=== PATIENT | male | born 1945 | race Caucasian/White ===

== ENCOUNTER 2017-04-12 09:24 | Emergency (ER) | payer MEDICARE ==
[~2017-04-12] VITALS: Ht 180.3 cm; Wt 75.0 kg
[2017-04-12 09:26] VITALS: BP 148/79; PULSE 84; RESP 16; TEMP 97.6; O2SAT 100
--- NOTE | 2017-04-12 10:17 | PD ---
HPI Chief Complaint: Musculoskeletal Complaint Time Seen by Provider: 09:43 Travel History International Travel<30 days: No Contact w/Intl Traveler<30days: No Traveled to known affect area: No History of Present Illness HPI 71-year-old male with 5 day history of left lower back pain with radicular pain into the left leg. Patient states it started after working in his garden. It has gotten progressively worse over the past couple of days. Patient denies numbness, tingling, or weakness other than secondary to discomfort. Patient has no other significant complaint. Patient denies bowel or bladder changes. He has no fever, chills, or other symptoms. Pain is 8 out of 10 he has no known drug allergies. PFSH Past Medical History Hx Anticoagulant Therapy: No Cardiovascular Problems: No Chemotherapy: No Cerebrovascular Accident: No Diabetes: No Respiratory: No Social History Alcohol Use: No Tobacco Use: No Substance Use: No Allergies-Medications (Allergen,Severity, Reaction): Coded Allergies: No Known Allergies (Verified Allergy, Unknown, 04/12/17) Review of Systems General / Constitutional: No: Fever Eyes: No: Visual changes HENT: No: Headaches Cardiovascular: No: Chest Pain or Discomfort Respiratory: No: Shortness of Breath Gastrointestinal: No: Abdominal Pain Genitourinary: No: Dysuria Musculoskeletal: Positive: Myalgias, Arthralgias, Limited ROM, Pain Skin: No Rash Neurologic: No: Weakness Psychiatric: No: Depression Endocrine: No: Polydipsia Hematologic/Lymphatic: No: Easy Bruising Physical Exam Narrative GENERAL: Patient appears in mild to moderate distress. SKIN: Warm and dry. Normal color. Normal turgor. No rash. HEAD: Atraumatic. Normocephalic. EYES: Pupils equal and round. No scleral icterus. No injection or drainage. ENT: No nasal bleeding or discharge. Mucous membranes pink and moist. Pharynx is clear. Airways patent. NECK: Trachea midline. Supple and nontender. CARDIOVASCULAR: Regular rate and rhythm. RESPIRATORY: No accessory muscle use. Clear to auscultation. Breath sounds equal bilaterally. MUSCULOSKELETAL: Extremities without clubbing, cyanosis, or edema. No obvious deformities. Patient is able to stand on the left foot with discomfort, he is able to dorsiflex and plantar flex without weakness he has mild straight leg raise pain on the left at 45 NEUROLOGICAL: Awake and alert. No obvious cranial nerve deficits. Motor grossly within normal limits. Five out of 5 muscle strength in the arms and legs. Normal speech. PSYCHIATRIC: Appropriate mood and affect; insight and judgment normal. Data Data Last Documented VS Vital Signs Date Time Temp Pulse Resp B/P (MAP) Pulse Ox O2 Delivery O2 Flow Rate FiO2 04/12/17 09:26 97.6 84 16 148/79 (102) 100 MDM Medical Decision Making Medical Screen Exam Complete: Yes Emergency Medical Condition: Yes Differential Diagnosis Low back pain. Sciatica. Spinal stenosis Narrative Course Discussed that I feel radiographic imaging is not warranted based on my history and physical at this time. Patient will be treated with prednisone 20 mg twice daily 7 days. Patient also given Flexeril 10 mg up to 3 times daily as needed muscle spasm #15 Patient is given tramadol 50 mg 1 every 6 hours as needed pain #20 Heat and ice and stretching and exercises as discussed. Patient to follow-up with chiropractor and/or orthopedic surgeon as needed. Diagnosis Primary Impression: Lumbago with sciatica, left side Qualified Codes: M54.42 - Lumbago with sciatica, left side Patient Instructions: Acute Low Back Pain (ED), General Instructions, Lower Back Exercises (ED), Lumbar Radiculopathy (ED) Additional Instructions: Discussed that I feel radiographic imaging is not warranted based on my history and physical at this time. Patient will be treated with prednisone 20 mg twice daily 7 days. Patient also given Flexeril 10 mg up to 3 times daily as needed muscle spasm #15 Patient is given tramadol 50 mg 1 every 6 hours as needed pain #20 Heat and ice and stretching and exercises as discussed. Patient to follow-up with chiropractor and/or orthopedic surgeon as needed. Med/Other Pt SpecificInfo: Prescription(s) given Disposition: 01 DISCHARGE HOME Condition: Stable Selvin Atkinson Apr 12, 2017 10:17
[2017-04-12] MEDS ORDERED: TRAM50TA PO (10:19)
[2017-04-12] MEDS ORDERED: CYCL10TA PO (10:19)
[2017-04-12] MEDS ORDERED: PRED20 PO (10:19)
== END 2017-04-12 10:31 | disposition home or self-care (01) ==
LOC: NEPK 09:24
DX: M54.42 Lumbago with sciatica, left side (principal)
CPT/HCPCS: 99283

== ENCOUNTER 2018-02-26 10:53 | Inpatient (IN) ==
[2018-02-26] MEDS ORDERED: Sod Chloride 0.9% Inj 1,000 ML IV.SIG ONE (11:24)
[2018-02-26 11:41] LABS: Baso # (Auto) 0.1 th/mm3 (0.0-0.2); Baso % (Auto) 0.6 % (0.0-2.0); Eos # (Auto) 0.3 th/mm3 (0.0-0.4); Eos % (Auto) 2.7 % (0.0-4.0); Hematocrit 38.2 % (39.0-51.0); Hemoglobin 13.5 gm/dL (13.0-17.0); Lymph # (Auto) 1.3 th/mm3 (1.0-4.8); Lymph % (Auto) 13.3 % (9.0-44.0); Mean Corpuscular HGB Conc 35.3 % (32.0-36.0); Mean Corpuscular Hemoglobin 35.8 pg (27.0-34.0); Mean Corpuscular Volume 101.4 fL (80.0-100.0); Mean Platelet Volume 9.4 fL (7.0-11.0); Mono # (Auto) 2.1 th/mm3 (0.0-0.9); Mono % (Auto) 22.1 % (0.0-8.0); Neut # (Auto) 5.8 th/mm3 (1.8-7.7); Neut % (Auto) 61.3 % (16.0-70.0); Platelet Count 146 th/mm3 (150-450); Red Blood Count 3.77 mil/mm3 (4.50-5.90); Red Cell Distribution Width 15.5 % (11.6-17.2); White Blood Count 9.5 th/mm3 (4.0-11.0)
[2018-02-26 11:57] LABS: Alanine Aminotransferase 20 U/L (12-78); Albumin 2.1 g/dL (3.4-5.0); Anion Gap 5 meq/L (5-15); Aspartate Aminotransferase 28 U/L (15-37); Blood Urea Nitrogen 17 mg/dL (7-18); Calcium 7.8 mg/dL (8.5-10.1); Carbon Dioxide 28.4 meq/L (21.0-32.0); Chloride 102 meq/L (98-107); Glomerular Filtration Rate 79 mL/min (>89); Glucose,Random 81 mg/dL (74-106); Magnesium 2.3 mg/dL (1.5-2.5); Sodium 135 meq/L (136-145)
[2018-02-26 12:01] LABS: Alkaline Phosphatase 78 U/L (45-117); Total Protein 6.5 g/dL (6.4-8.2); Troponin I 0.03 ng/mL (0.02-0.05)
--- NOTE | 2018-02-26 12:07 | XR ---
EXAM DATE: 02/26/2018 11:39 AM EST AGE/SEX: 72 years / Male INDICATIONS: Shortness of breath and generalized weakness. CLINICAL DATA: This is the patient's sequela encounter. Patient reports that signs and symptoms have been present for 1 week and indicates a pain score of 0/10. MEDICAL/SURGICAL HISTORY: Cirrhosis. . Paracentesis. COMPARISON: [facility] [place], CHEST 1V SINGLE AP, 02/18/2018. . FINDINGS: A single AP view of the chest demonstrates the lungs to be symmetrically aerated without evidence of mass, infiltrate or effusion. The cardiomediastinal contours are unremarkable. Osseous structures a re intact. CONCLUSION: Negative for acute process Electronically signed by: Eliu Garcia MD Board Certified Radiologist 02/26/2018 12:06 PM EST
--- NOTE | 2018-02-26 12:07 | CT ---
EXAM DATE: 02/26/2018 11:47 AM EST AGE/SEX: 72 years / Male INDICATIONS: Altered mental status and weakness. CLINICAL DATA: This is the patient's initial encounter. Patient reports that signs and symptoms have been present for 2 days and indicates a pain score of 0/10. MEDICAL/SURGICAL HISTORY: Cirrhosis. Congestive heart failure. Hypertension. Hep c. None. RADIATION DOSE: 36.12 CTDI (mGy) COMPARISON: No prior exams available for comparison. TECHNIQUE: CT of the head without contrast. Using automated exposure control and adjustment of the mA and/or kV according to patient size, radiation dose was kept as low as reasonably achievable to ob tain optimal diagnostic quality images. DICOM format image data is available electronically for revi ew and comparison. FINDINGS: Cerebrum: Mild diffuse cerebral atrophy. The ventricles are normal for degree of atrophy. No evidenc e of midline shift, mass lesion, hemorrhage or acute infarction. No extraaxial fluid collections are seen. Posterior Fossa: The cerebellum and brainstem are intact. The 4th ventricle is midline. The cerebe llopontine angle is unremarkable. Extracranial: The visualized portion of the orbits is intact. Skull: The calvaria is intact. No evidence of skull fracture. CONCLUSION: 1. Senescent changes without acute intracranial abnormality. . Electronically signed by: Venancio Vera MD Board Certified Radiologist 02/26/2018 12:05 PM EST
[2018-02-26 13:18] LABS: Amphetamine Screen,Urine Neg (Neg); Barbiturate Screen,Urine Neg (Neg); Cannabinoid Screen,Urine Neg (Neg); Cocaine Screen,Urine Neg (Neg)
[2018-02-26 13:19] LABS: Bilirubin,Urine Negative (Negative); Calcium Oxalate Crystals,Urine Rare /hpf; Clarity,Urine Hazy (Clear); Color,Urine Amber (Yellw/Straw); Glucose,Urine (UA) Negative (Negative); Hyaline Casts,Urine 4 /lpf (0-3); Leukocyte Esterase,Urine Negative (Negative); Mucus,Urine Few /lpf (Occasional); Nitrite,Urine Negative (Negative); Opiate Screen,Urine Neg (Neg); Specific Gravity,Urine 1.015 (1.002-1.035); Squamous Epithelial Cell,Urine <1 /hpf (0-5)
--- NOTE | 2018-02-26 13:45 | ED ---
HPI General Chief Complaint: Altered Mental Status Stated Complaint: Medical Time Seen by Provider: 02/26/18 11:06 Source: patient and family Mode of arrival: wheelchair Limitations: altered mental status History of Present Illness HPI narrative: 72-year-old male with PMH of hepatitis C, cirrhosis of the liver , esophageal varices, ascites presents to the ED for evaluation of 4-day history of weakness and intermittent confusion. The patient's is at bedside and helps to provide the history. She states that patient was recently discharged from the hospital. She states on the first day he was more himself but since then he has "been in bed." She states that he has had intermittent episodes of confusion and anxiety. She states that he has had an episode of urinary incontinence. She states that the patient has not had any fevers. She states that he has had a "okay" appetite. She states that he has not been complaining of anything but has not resumed his normal ADLs. The patient is alert and oriented x3. He follows commands. He denies chest pain, shortness of breath, nausea, vomiting. He states that "It is too hard to talk." Related Data Previous Rx's Medication Instructions Recorded furosemide 40 mg PO BID@0900,1800 #60 tab 02/23/18 nadolol 20 mg PO DAILY 30 Days #30 tab 02/23/18 spironolactone 100 mg PO BID@0900,1800 #60 tab 02/23/18 Allergies Allergy/AdvReac Type Severity Reaction Status Date / Time No Known Allergies Allergy Verified 02/26/18 11:01 Review of Systems ROS: all other systems reviewed are negative [facility] Medical History Medical History Advanced hepatic cirrhosis (Acute) CHF (congestive heart failure) (Acute) HTN (hypertension) (Acute) Social History Social History Substance History: Past History Second Hand Smoke Exposure: No Smoking Status: Never smoker Tobacco Type: Cigarettes How Often Do You Have a Drink Containing Alcohol: Never Recent Travel in [facility] within the Last 8 Weeks: No Recent Out of Country Travel within the Last 8 Weeks: No Substance Abuse Detail Alcohol: Substance Use Status: Sustained Remission Immunization History Tetanus Immunization: Unsure Exam Narrative Exam Narrative: GENERAL: Thin, chronically ill-appearing white male in no acute distress. SKIN: Focused skin assessment warm/dry. Mildly jaundiced. HEAD: Atraumatic. Normocephalic. EYES: Pupils equal and round. No scleral icterus. No injection or drainage. ENT: No nasal bleeding or discharge. Mucous membranes pink and moist. NECK: Trachea midline. No JVD. CARDIOVASCULAR: Regular rate and rhythm. No murmur appreciated. RESPIRATORY: No accessory muscle use. Clear to auscultation. Breath sounds equal bilaterally. GASTROINTESTINAL: Abdomen soft, non-tender, mildly distended. Positive fluid wave. Hepatic and splenic margins not palpable. MUSCULOSKELETAL: No obvious deformities. No clubbing. No cyanosis. No edema. NEUROLOGICAL: Awake and alert. No obvious cranial nerve deficits. Motor grossly within normal limits. Normal speech. PSYCHIATRIC: Appropriate mood and affect; insight and judgment normal. Course Initial Documented Vital Signs Temperature 97.5 F L 02/26/18 10:59 Pulse Rate 69 02/26/18 10:59 Respiratory Rate 16 02/26/18 10:59 Blood Pressure 120/66 02/26/18 10:59 Pulse Oximetry 100 02/26/18 10:59 Last Documented Vital Signs Temperature 97.5 F L 02/26/18 10:59 Pulse Rate 62 02/26/18 11:10 Respiratory Rate 18 02/26/18 11:10 Blood Pressure 127/63 02/26/18 11:10 Pulse Oximetry 100 02/26/18 11:10 Medical Decision Making [facility] Narrative Medical decision making narrative: 72-year-old male with PMH of hepatitis C, cirrhosis, hypertension, ascites presents the ED for evaluation of weakness and intermittent confusion. Patient states that he is too weak to talk. at bedside provides the history. Patient is afebrile on presentation. Physical exam reveals a chronically ill-appearing white male in no acute distress. No focal neuro deficits. Abdomen with moderate ascites and fluid wave. Skin is mildly jaundiced appearing. Patient was administered 1 L normal saline. I reviewed the patient's record. He was just discharged a few days ago. EKG without acute findings. Troponin negative x1. Lab work with no leukocytosis or anemia. CMP with elevated bilirubin of 2.5, worsened from last visit and AST of 28, ALT 20. UA: No culture indicated. CT brain with mild diffuse atrophy. CXR negative for acute process per radiology read. Ammonia trending downward at 44. Given the patient's weakness and intermittent confusion plan to admit for observation. Likely needs PT evaluation as well. Patient's family is agreeable to this plan I spoke with Dr. Molina who agrees to accept him to the medicine service. Please see medicine notes for disposition. Medical Screen Exam Complete: Yes Emergency Medical Condition: Yes Differential Diagnosis Differential Diagnosis: UTI versus pneumonia versus liver failure versus other Lab Data Result diagrams: 02/26/18 11:30 02/26/18 11:30 Lab Results 02/26/18 02/26/18 02/26/18 Range/Units 11:30 11:30 11:30 WBC 9.5 (4.0-11.0) th/mm3 RBC 3.77 L (4.50-5.90) mil/mm3 Hgb 13.5 (13.0-17.0) gm/dL Hct 38.2 L (39.0-51.0) % MCV 101.4 H (80.0-100.0) fL MCH 35.8 H (27.0-34.0) pg MCHC 35.3 (32.0-36.0) % RDW 15.5 (11.6-17.2) % Plt Count 146 L D (150-450) th/mm3 MPV 9.4 (7.0-11.0) fL Neut % (Auto) 61.3 (16.0-70.0) % Lymph % (Auto) 13.3 (9.0-44.0) % Johnson % (Auto) 22.1 H (0.0-8.0) % Eos % (Auto) 2.7 (0.0-4.0) % Baso % (Auto) 0.6 (0.0-2.0) % Neut # (Auto) 5.8 (1.8-7.7) th/mm3 Lymph # (Auto) 1.3 (1.0-4.8) th/mm3 Johnson # (Auto) 2.1 H (0.0-0.9) th/mm3 Eos # (Auto) 0.3 (0.0-0.4) th/mm3 Baso # (Auto) 0.1 (0.0-0.2) th/mm3 WBC Differential . Differential Comment Auto diff final Sodium 135 L (136-145) meq/L Potassium 4.0 (3.5-5.1) meq/L Chloride 102 (98-107) meq/L Carbon Dioxide 28.4 (21.0-32.0) meq/L Anion Gap 5 (5-15) meq/L BUN 17 (7-18) mg/dL Creatinine 0.94 (0.60-1.30) mg/dL Estimated GFR 79 L (>89) mL/min Random Glucose 81 (74-106) mg/dL Lactic Acid 1.7 (0.4-2.0) mmol/L Calcium 7.8 L (8.5-10.1) mg/dL Magnesium 2.3 (1.5-2.5) mg/dL Total Bilirubin 2.5 H (0.2-1.0) mg/dL AST 28 (15-37) U/L ALT 20 (12-78) U/L Alkaline Phosphatase 78 (45-117) U/L Ammonia (11-32) mcmol/L Troponin I 0.03 (0.02-0.05) ng/mL Total Protein 6.5 D (6.4-8.2) g/dL Albumin 2.1 L (3.4-5.0) g/dL Urine Color (Yellw/Straw) Urine Clarity (Clear) Urine pH (5.0-8.5) Ur Specific Galt (1.002-1.035) Urine Protein (Neg-Trace) mg/dL Urine Glucose (UA) (Negative) mg/dL Urine Ketones (Negative) mg/dL Urine Occult Blood (Negative) Urine Nitrate (Negative) Urine Bilirubin (Negative) Urine Urobilinogen (Less than 2) mg/dL Ur Leukocyte Esterase (Negative) Urine RBC (0-3) /hpf Urine WBC (0-5) /hpf Ur Squamous Epith Cells (0-5) /hpf Calcium Oxalate Crystal (None) /hpf Hyaline Casts (0-3) /lpf Urine Mucus (Occasional) /lpf Micro UA Comment Ur Microscopic Review Urine Culture Comments Urine Opiates Screen (Neg) Ur Barbiturates Screen (Neg) Ur Amphetamines Screen (Neg) U Benzodiazepines Scrn (Neg) Urine Cocaine Screen (Neg) U Cannabinoids Screen (Neg) Serum Alcohol Less than 3 (0-5) mg/dL 02/26/18 02/26/18 02/26/18 Range/Units 11:30 12:53 12:53 WBC (4.0-11.0) th/mm3 RBC (4.50-5.90) mil/mm3 Hgb (13.0-17.0) gm/dL Hct (39.0-51.0) % MCV (80.0-100.0) fL MCH (27.0-34.0) pg MCHC (32.0-36.0) % RDW (11.6-17.2) % Plt Count (150-450) th/mm3 MPV (7.0-11.0) fL Neut % (Auto) (16.0-70.0) % Lymph % (Auto) (9.0-44.0) % Johnson % (Auto) (0.0-8.0) % Eos % (Auto) (0.0-4.0) % Baso % (Auto) (0.0-2.0) % Neut # (Auto) (1.8-7.7) th/mm3 Lymph # (Auto) (1.0-4.8) th/mm3 Johnson # (Auto) (0.0-0.9) th/mm3 Eos # (Auto) (0.0-0.4) th/mm3 Baso # (Auto) (0.0-0.2) th/mm3 WBC Differential Differential Comment Sodium (136-145) meq/L Potassium (3.5-5.1) meq/L Chloride (98-107) meq/L Carbon Dioxide (21.0-32.0) meq/L Anion Gap (5-15) meq/L BUN (7-18) mg/dL Creatinine (0.60-1.30) mg/dL Estimated GFR (>89) mL/min Random Glucose (74-106) mg/dL Lactic Acid (0.4-2.0) mmol/L Calcium (8.5-10.1) mg/dL Magnesium (1.5-2.5) mg/dL Total Bilirubin (0.2-1.0) mg/dL AST (15-37) U/L ALT (12-78) U/L Alkaline Phosphatase (45-117) U/L Ammonia 44 H (11-32) mcmol/L Troponin I (0.02-0.05) ng/mL Total Protein (6.4-8.2) g/dL Albumin (3.4-5.0) g/dL Urine Color Consuelo (Yellw/Straw) Urine Clarity Hazy H (Clear) Urine pH 6.0 (5.0-8.5) Ur Specific Galt 1.015 (1.002-1.035) Urine Protein Negative (Neg-Trace) mg/dL Urine Glucose (UA) Negative (Negative) mg/dL Urine Ketones Negative (Negative) mg/dL Urine Occult Blood Moderate H (Negative) Urine Nitrate Negative (Negative) Urine Bilirubin Negative (Negative) Urine Urobilinogen 1.0 (Less than 2) mg/dL Ur Leukocyte Esterase Negative (Negative) Urine RBC 61 H (0-3) /hpf Urine WBC 7 H (0-5) /hpf Ur Squamous Epith Cells <1 (0-5) /hpf Calcium Oxalate Crystal Rare H (None) /hpf Hyaline Casts 4 (0-3) /lpf Urine Mucus Few H (Occasional) /lpf Micro UA Comment Culture not ind Ur Microscopic Review Not Reportable Urine Culture Comments Culture not ind Urine Opiates Screen Neg (Neg) Ur Barbiturates Screen Neg (Neg) Ur Amphetamines Screen Neg (Neg) U Benzodiazepines Scrn Neg (Neg) Urine Cocaine Screen Neg (Neg) U Cannabinoids Screen Neg (Neg) Serum Alcohol (0-5) mg/dL Imaging Data Radiologist's impression: Chest X-Ray 02/26/18 11:24 CONCLUSION: Negative for acute process Head CT 02/26/18 11:24 CONCLUSION: 1. Senescent changes without acute intracranial abnormality. . ECG Data EKG Prior to Arrival: No Attestation: I personally reviewed and interpreted this ECG as follows: Interpretation: EKG rate 60, sinus rhythm. AL interval 207, QRS 86, QTc 412 ms. Normal axis. No acute ST changes. Reviewed by Dr. Barnett. Discharge Plan Discharge Disposition Patient Disposition: ED Admit(ED Internal Use Only) Discharge Order Discharge Orders: ED Use Only Admit Order (Routine); Ordered 02/26/18 Ordered By: Morena Monae Physicians Team ED Provider: Destiney Barnett ED Midlevel Provider: Morena Monae Primary Care Provider: NON STAFF,PROVIDER Attending Provider: Gurinder Bazzi Status ED Status: Admitted Observation Patient
--- NOTE | 2018-02-26 13:57 | P.HPFP ---
History of Present Illness Primary Care Physician: PROVIDER NON STAFF <JluisGurinder L - 02/27/18 14:17> PROVIDER NON STAFF <Jesse Saurabh Melvin Stephanie - 02/26/18 13:57> History of Present Illness: This patient is a 72-year-old male with a history of liver cirrhosis diagnosed 20 years ago, recently discharged from [facility] after being treated for acute liver failure complicated by ascites who presents the ED with a 3-day history of waxing waning confusion. Per patient was fine on day of discharge and went on about his daily activities without issue. Patient continued to feel fine on Thursday and Thursday as well but slept most of the day with the exception of going to the bathroom. On however, patient started to be confused, felt panicked and scared. reports that he had difficulty using remote control due to his confusion as well as called into bathroom due to confusion as he did not know which hand to use to white himself. reports that on Thursday at 4AM he was sleeping on the couch and got up to use bathroom but started walking to kitchen, redirected him but he walked into another room and took several other redirections to finally get him into the right room. He reports that his confusion happens about 2-3 times a day and lasts about 5 minutes, and resolves with significant redirection and reorientation. During this time reports that he is eating well but has been constipated. Patient reports his last bowel movement was yesterday but admits that he may be confused. 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 Patient smokes marijuana occasionally but does not smoke or use tobacco. He has 4 kids in total one that is an unfortunate suicide after being addicted to painkillers. Allergies: None <Jesse MelvinSaurabh Stephanie - 02/26/18 18:01> - Diagnosis (1) Acute hepatic encephalopathy (2) Ascites (3) Weakness (4) Cirrhosis of liver (5) Hepatitis C antibody test positive (6) History of esophageal varices with bleeding <Gurinder Bazzi Caroline 02/27/18 14:17> (1) Acute hepatic encephalopathy (2) Ascites (3) Weakness (4) Cirrhosis of liver (5) Hepatitis C antibody test positive (6) History of esophageal varices with bleeding <Saurabh Hand 02/26/18 17:44> Inpatient Certification: I certify that the inpatient services were ordered in accordance with Medicare regulations governing the order. This includes certification that hospital inpatient services are reasonable and necessary and in the case of services not specified as inpatient-only under 42 CFR 419.22(n), that they are appropriately provided as inpatient services in accordance to with the 2-midnight benchmark under 43 CFR 412.3(e) <Gurinder Bazzi Caroline Lanier 02/27/18 14:17> Review of Systems Constitutional: Endorses feeling confused as well as weak. He also reports that he gets dizzy when he stands. He denies any room spinning. Denies chills , Denies fever(s), Denies headache(s), Denies dizziness, Eyes: Denies change in vision, Denies double vision, Denies blurry vision Cardiovascular: Denies chest pain, Denies fast heart rate, Denies rapid, pounding, or irregular heartbeat Respiratory: Denies shortness of breath or wheezing Gastrointestinal: Per patient has been constipated, denies abdominal pain, Denies loose stools, Denies nausea, Denies vomiting Genitourinary: Denies difficulty urinating, Denies painful urination, Denies urinary frequency, Denies blood in urine <Saurabh Hand 02/26/18 16:50> [facility] - History History Provided By: Patient <Saurabh Hand 02/26/18 13:57> - Medical History Medical History: Medical History (Last Reviewed 02/26/18 @ 13:53 by HORACE Green) Advanced hepatic cirrhosis CHF (congestive heart failure) HTN (hypertension) <JluisGurinder Caroline Lanier 02/27/18 14:17> Medical History (Last Reviewed 02/26/18 @ 13:53 by HORACE Green) Advanced hepatic cirrhosis CHF (congestive heart failure) HTN (hypertension) <Molina OlegarioSaurabh O 02/26/18 14:00> - Tobacco History Second Hand Smoke Exposure: No <Saurabh Hand 02/26/18 13:57> Tobacco Use In Past 30 Days: No <Saurabh Hand 02/26/18 13:57> Smoking Status: Never smoker <Saurabh Hand 02/26/18 13:57> Tobacco Type: Cigarettes <Saurabh Hand 02/26/18 13:57> - Alcohol History How Often Do You Have a Drink Containing Alcohol: Never <Saurabh Hand 13:57> - Substance Use History Substance History: Past History <Saurabh Hand 02/26/18 13:57> - Substance Use Type Alcohol Status: Sustained Remission <Saurabh Hand 02/26/18 13:57> - Travel History Recent Travel in the [facility] Within the Last 8 Weeks: No <Saurabh Hand 02/26 13:57> Recent Travel Out of the Country Within the Last 8 Weeks: No <Saurabh Hand 02/26/18 13:57> - Immunization History Tetanus Immunization: Unsure <Saurabh Hand 02/26/18 13:57> Medications and Allergies Allergies Allergy/AdvReac Type Severity Reaction Status Date / Time No Known Allergies Allergy Verified 02/26/18 11:01 <Gurinder Bazzi - 02/27/18 14:17> Active Medications: Active Medications Al Hydroxide/Mg Hydroxide (Milk Of Magnesia Liq) 30 ml PO Q12H PRN PRN Reason: Mild Constipation Bisacodyl (Dulcolax Supp) 10 mg RECTAL DAILY PRN PRN Reason: SEVERE CONSITIPATION Furosemide (Lasix) 40 mg PO TID [facility] Last Admin: 02/27/18 14:03 Dose: 40 mg Lactulose (Lactulose Liq) 30 ml PO DAILY PRN PRN Reason: SEVERE CONSITIPATION Lactulose (Lactulose Liq) 30 ml PO QID [facility] Last Admin: 02/27/18 12:39 Dose: 30 ml Nadolol (Corgard) 20 mg PO DAILY [facility] Last Admin: 02/27/18 09:32 Dose: 20 mg Ondansetron HCl (Zofran Inj) 4 mg IV.PUSH Q6H PRN PRN Reason: NAUSEA OR VOMITING Last Admin: 02/27/18 09:32 Dose: 4 mg Rifaximin (Xifaxan) 400 mg PO Q8HR [facility] Senna/Docusate Sodium (Jessica-Colace) 1 tab PO BID [facility] Last Admin: 02/27/18 09:32 Dose: 1 tab Sennosides (Senokot) 17.2 mg PO Q12H PRN PRN Reason: Moderate Constipation Sodium Chloride (Ns Flush) 2 ml IV.FLUSH BID [facility] Last Admin: 02/27/18 09:00 Dose: 2 ml Sodium Chloride (Ns Flush) 2 ml IV.FLUSH PRN PRN PRN Reason: FLUSH AFTER USING IV ACCESS Spironolactone (Aldactone) 300 mg PO DAILY [facility] Last Admin: 02/27/18 14:02 Dose: 300 mg <Gurinder Bazzi L - 02/27/18 14:17> Active Medications Sodium Chloride (Ns Flush) 2 ml IV.FLUSH PRN PRN PRN Reason: FLUSH AFTER USING IV ACCESS <Saurabh Hand O - 02/26/18 13:57> Exam Vital signs: Vital Signs 02/26/18 15:44 02/26/18 17:46 02/26/18 20:00 Temperature 97.8 F 97.9 F Pulse Rate 62 59 L 67 Respiratory Rate 20 18 18 Blood Pressure 124/62 121/71 117/65 Pulse Oximetry 98 100 99 02/27/18 00:00 02/27/18 04:00 02/27/18 08:35 Temperature 97.9 F 98.0 F 97.9 F Pulse Rate 67 68 68 Respiratory Rate 18 18 16 Blood Pressure 114/63 113/56 L 114/71 Pulse Oximetry 97 98 99 02/27/18 12:03 Temperature 98.1 F Pulse Rate 67 Respiratory Rate 18 Blood Pressure 118/70 Pulse Oximetry 98 Intake & Output 02/26/18 02/27/18 02/27/18 18:59 06:59 18:59 Intake Total 1240 / 1240 Output Total 1100 / 1100 Balance 140 / 140 Weight 74.843 kg 61.8 kg Intake: IV 1000 / 1000 NS Inj 1,000 ML @ Wide Open IV. 1000 / 1000 SIG BOLUS ONE Rx#:[id number] Oral 240 / 240 Output: Urine 1100 / 1100 <Gurinder Bazzi Caroline - 02/27/18 14:17> Vital Signs 02/26/18 10:59 02/26/18 11:10 Temperature 97.5 F L Pulse Rate 69 62 Respiratory Rate 16 18 Blood Pressure 120/66 127/63 Pulse Oximetry 100 100 Intake & Output 02/25/18 02/26/18 02/26/18 18:59 06:59 18:59 Weight 74.843 kg <Saurabh Hand Stephanie - 02/26/18 13:57> Narrative: GENERAL: Thin cachectic appearing white gentleman that is difficult to arouse. Laying quietly in bed. SKIN: Warm and dry. No rash. Minor spider angiomata over abdomen and chest. Some minor erythema overlying home. EYES: Scleral icterus, without injection or drainage. CARDIOVASCULAR: Regular rate and rhythm without obvious murmurs, gallops, or rubs. RESPIRATORY: Breath sounds equal bilaterally. No accessory muscle use. CTAB. GASTROINTESTINAL: Abdomen distended with positive fluid wave. Prominent veins across the abdomen with, beginnings of caput medusa appreciated. MUSCULOSKELETAL: No cyanosis or edema. normal ROM NEURO/PSYCH: Alert and oriented x3. Cranial nerves II through XII grossly intact. No pronator drift. No dysdiadochokinesia. Cerebellar function not able to be assessed due to patient's weakness. Weak in upper and lower extremities but weakness is equal bilaterally. No focal or isolated deficit. Short-term and long-term memory intact. <Saurabh Hand Stephanie - 02/26/18 18:01> Results - Labs Result diagrams: 02/27/18 06:42 02/27/18 06:42 <Gurinder Bazzi Caroline - 02/27/18 14:17> Abnormal lab results 02/26/18 02/27/18 02/27/18 Range/Units 15:12 06:42 06:42 RBC 3.82 L (4.50-5.90) mil/mm3 Hct 38.7 L (39.0-51.0) % MCV 101.3 H (80.0-100.0) fL MCH 35.4 H (27.0-34.0) pg Plt Count 141 L (150-450) th/mm3 Frontier % (Auto) 19.0 H (0.0-8.0) % Frontier # (Auto) 1.6 H (0.0-0.9) th/mm3 VBG pH 7.43 H (7.360-7.400) VBG pCO2 40 L (44-48) mmHG VBG pO2 27 L* (35-40) mmHG VBG O2 Saturation 41 L (70-76) % VBG O2 Content 7.5 L (9.0-17.0) Vol % VBG Base Excess 2.3 H (-2-2) mmol/L Calcium 7.9 L (8.5-10.1) mg/dL Total Bilirubin 2.7 H (0.2-1.0) mg/dL Ammonia (11-32) mcmol/L Total Protein 6.2 L (6.4-8.2) g/dL Albumin 2.0 L (3.4-5.0) g/dL 02/27/18 Range/Units 06:42 RBC (4.50-5.90) mil/mm3 Hct (39.0-51.0) % MCV (80.0-100.0) fL MCH (27.0-34.0) pg Plt Count (150-450) th/mm3 Frontier % (Auto) (0.0-8.0) % Frontier # (Auto) (0.0-0.9) th/mm3 VBG pH (7.360-7.400) VBG pCO2 (44-48) mmHG VBG pO2 (35-40) mmHG VBG O2 Saturation (70-76) % VBG O2 Content (9.0-17.0) Vol % VBG Base Excess (-2-2) mmol/L Calcium (8.5-10.1) mg/dL Total Bilirubin (0.2-1.0) mg/dL Ammonia 83 H (11-32) mcmol/L Total Protein (6.4-8.2) g/dL Albumin (3.4-5.0) g/dL Short CBC 02/27/18 Range/Units 06:42 WBC 8.7 (4.0-11.0) th/mm3 Hgb 13.5 (13.0-17.0) gm/dL Hct 38.7 L (39.0-51.0) % Plt Count 141 L (150-450) th/mm3 BMP 02/27/18 06:42 Sodium 136 Potassium 4.3 Chloride 106 Carbon Dioxide 22.7 BUN 18 Creatinine 0.79 Calcium 7.9 L Liver Function 02/27/18 Range/Units 06:42 Total Bilirubin 2.7 H (0.2-1.0) mg/dL AST 27 (15-37) U/L ALT 21 (12-78) U/L Alkaline Phosphatase 77 (45-117) U/L Albumin 2.0 L (3.4-5.0) g/dL <Gurinder Bazzi L - 02/27/18 14:17> Abnormal lab results 02/26/18 02/26/18 02/26/18 Range/Units 11:30 11:30 11:30 RBC 3.77 L (4.50-5.90) mil/mm3 Hct 38.2 L (39.0-51.0) % MCV 101.4 H (80.0-100.0) fL MCH 35.8 H (27.0-34.0) pg Plt Count 146 L D (150-450) th/mm3 Frontier % (Auto) 22.1 H (0.0-8.0) % Frontier # (Auto) 2.1 H (0.0-0.9) th/mm3 Sodium 135 L (136-145) meq/L Estimated GFR 79 L (>89) mL/min Calcium 7.8 L (8.5-10.1) mg/dL Total Bilirubin 2.5 H (0.2-1.0) mg/dL Ammonia 44 H (11-32) mcmol/L Albumin 2.1 L (3.4-5.0) g/dL Urine Clarity (Clear) Urine Occult Blood (Negative) Urine RBC (0-3) /hpf Urine WBC (0-5) /hpf Calcium Oxalate Crystal (None) /hpf Urine Mucus (Occasional) /lpf 02/26/18 Range/Units 12:53 RBC (4.50-5.90) mil/mm3 Hct (39.0-51.0) % MCV (80.0-100.0) fL MCH (27.0-34.0) pg Plt Count (150-450) th/mm3 Frontier % (Auto) (0.0-8.0) % Frontier # (Auto) (0.0-0.9) th/mm3 Sodium (136-145) meq/L Estimated GFR (>89) mL/min Calcium (8.5-10.1) mg/dL Total Bilirubin (0.2-1.0) mg/dL Ammonia (11-32) mcmol/L Albumin (3.4-5.0) g/dL Urine Clarity Hazy H (Clear) Urine Occult Blood Moderate H (Negative) Urine RBC 61 H (0-3) /hpf Urine WBC 7 H (0-5) /hpf Calcium Oxalate Crystal Rare H (None) /hpf Urine Mucus Few H (Occasional) /lpf Short CBC 02/26/18 Range/Units 11:30 WBC 9.5 (4.0-11.0) th/mm3 Hgb 13.5 (13.0-17.0) gm/dL Hct 38.2 L (39.0-51.0) % Plt Count 146 L D (150-450) th/mm3 BMP 02/26/18 11:30 Sodium 135 L Potassium 4.0 Chloride 102 Carbon Dioxide 28.4 BUN 17 Creatinine 0.94 Calcium 7.8 L Cardiac Enzymes 02/26/18 Range/Units 11:30 Troponin I 0.03 (0.02-0.05) ng/mL Liver Function 02/26/18 Range/Units 11:30 Total Bilirubin 2.5 H (0.2-1.0) mg/dL AST 28 (15-37) U/L ALT 20 (12-78) U/L Alkaline Phosphatase 78 (45-117) U/L Albumin 2.1 L (3.4-5.0) g/dL Urine 02/26/18 Range/Units 12:53 Urine Color Consuelo (Yellw/Straw) Urine Clarity Hazy H (Clear) Urine pH 6.0 (5.0-8.5) Ur Specific [address] 1.015 (1.002-1.035) Urine Protein Negative (Neg-Trace) mg/dL Urine Glucose (UA) Negative (Negative) mg/dL <Saurabh Hand 02/26/18 13:57> - Imaging Impressions Chest X-Ray 02/26/18 11:24 CONCLUSION: Negative for acute process Head CT 02/26/18 11:24 CONCLUSION: 1. Senescent changes without acute intracranial abnormality. . <Saurabh Hand 02/26/18 13:57> Caprini VTE Risk Assessment Caprini VTE Risk Assessment: Moderate/High Risk (score >= 2) <Saurabh Hand - 02/26/18 18:01> Caprini Risk Assessment Model: Point Value = 1 Point Value = 2 Point Value = 3 Point Value = 5 Age 41-60 Minor surgery BMI > 25 kg/m2 Swollen legs Varicose veins or History of unexplained or recurrent spontaneous Oral contraceptives or hormone replacement Sepsis (< 1 month) Serious lung disease, including pneumonia (< 1 month) Abnormal pulmonary function Acute myocardial infarction Congestive heart failure (< 1 month) History of inflammatory bowel disease Medical patient at bed rest Age 61-74 Arthroscopic surgery Major open surgery (> 45 min) Laparoscopic surgery (> 45 min) Malignancy Confined to bed (> 72 hours) Immobilizing plaster cast Central venous access Age >= 75 History of VTE Family history of VTE Factor V Leiden Prothrombin [id number] Lupus anticoagulant Anticardiolipin antibodies Elevated serum homocysteine Heparin-induced thrombocytopenia Other congenital or acquired thrombophilia Stroke (< 1 month) Elective arthroplasty Hip, pelvis, or leg fracture Acute spinal cord injury (< 1 month) <Gurinder Bazzi L 02/27/18 14:17> Point Value = 1 Point Value = 2 Point Value = 3 Point Value = 5 Age 41-60 Minor surgery BMI > 25 kg/m2 Swollen legs Varicose veins or History of unexplained or recurrent spontaneous Oral contraceptives or hormone replacement Sepsis (< 1 month) Serious lung disease, including pneumonia (< 1 month) Abnormal pulmonary function Acute myocardial infarction Congestive heart failure (< 1 month) History of inflammatory bowel disease Medical patient at bed rest Age 61-74 Arthroscopic surgery Major open surgery (> 45 min) Laparoscopic surgery (> 45 min) Malignancy Confined to bed (> 72 hours) Immobilizing plaster cast Central venous access Age >= 75 History of VTE Family history of VTE Factor V Leiden Prothrombin [id number] Lupus anticoagulant Anticardiolipin antibodies Elevated serum homocysteine Heparin-induced thrombocytopenia Other congenital or acquired thrombophilia Stroke (< 1 month) Elective arthroplasty Hip, pelvis, or leg fracture Acute spinal cord injury (< 1 month) <Saurabh Hand - 02/26/18 13:57> Prophylaxis Regimen: Total Risk Factor Score Risk Level Prophylaxis Regimen 0-1 Low Early ambulation 2 Moderate Order ONE of the following: *Sequential Compression Device (SCD) *Heparin 5000 units SQ BID 3-4 Higher Order ONE of the following medications: *Heparin 5000 units SQ TID *Enoxaparin/Lovenox 40 mg SQ daily (WT < 150 kg, CrCl > 30 mL/min) *Enoxaparin/Lovenox 30 mg SQ daily (WT < 150 kg, CrCl > 10-29 mL/min) *Enoxaparin/Lovenox 30 mg SQ BID (WT < 150 kg, CrCl > 30 mL/min) AND/OR *Sequential Compression Device (SCD) 5 or more Highest Order ONE of the following medications: *Heparin 5000 units SQ TID (Preferred with Epidurals) *Enoxaparin/Lovenox 40 mg SQ daily (WT < 150 kg, CrCl > 30 mL/min) *Enoxaparin/Lovenox 30 mg SQ daily (WT < 150 kg, CrCl > 10-29 mL/min) *Enoxaparin/Lovenox 30 mg SQ BID (WT < 150 kg, CrCl > 30 mL/min) AND *Sequential Compression Device (SCD) <Gurinder Bazzi - 02/27/18 14:17> Total Risk Factor Score Risk Level Prophylaxis Regimen 0-1 Low Early ambulation 2 Moderate Order ONE of the following: *Sequential Compression Device (SCD) *Heparin 5000 units SQ BID 3-4 Higher Order ONE of the following medications: *Heparin 5000 units SQ TID *Enoxaparin/Lovenox 40 mg SQ daily (WT < 150 kg, CrCl > 30 mL/min) *Enoxaparin/Lovenox 30 mg SQ daily (WT < 150 kg, CrCl > 10-29 mL/min) *Enoxaparin/Lovenox 30 mg SQ BID (WT < 150 kg, CrCl > 30 mL/min) AND/OR *Sequential Compression Device (SCD) 5 or more Highest Order ONE of the following medications: *Heparin 5000 units SQ TID (Preferred with Epidurals) *Enoxaparin/Lovenox 40 mg SQ daily (WT < 150 kg, CrCl > 30 mL/min) *Enoxaparin/Lovenox 30 mg SQ daily (WT < 150 kg, CrCl > 10-29 mL/min) *Enoxaparin/Lovenox 30 mg SQ BID (WT < 150 kg, CrCl > 30 mL/min) AND *Sequential Compression Device (SCD) <MolinaSaurabh Richardson O - 02/26/18 13:57> Assessment and Plan - Assessment (1) Acute hepatic encephalopathy Code(s): K72.00 - Acute and subacute hepatic failure without coma Status: Acute (2) Ascites Code(s): R18.8 - Other ascites Status: Acute (3) Weakness Code(s): R53.1 - Weakness Status: Acute (4) Cirrhosis of liver Code(s): K74.60 - Unspecified cirrhosis of liver Status: Acute (5) Hepatitis C antibody test positive Code(s): R76.8 - Other specified abnormal immunological findings in serum Status: Acute (6) History of esophageal varices with bleeding Code(s): Z87.19 - Personal history of other diseases of the digestive system Status: Acute <Gurinder Bazzi - 02/27/18 14:17> (1) Acute hepatic encephalopathy Code(s): K72.00 - Acute and subacute hepatic failure without coma Status: Acute Plan: This patient is a 72-year-old male with a history of liver cirrhosis diagnosed 20 years ago, recently discharged from [facility] after being treated for acute liver failure complicated by ascites who presents the ED with a 3-day history of waxing waning confusion. Differential diagnosis includes acute hepatic encephalopathy, acute infection, metabolic disturbance, CVA, anemia, and delirium. -Afebrile with white count of 9.5, with no obvious source of infection -Macrocytic anemia stable, hemoglobin 13.5 -CT of the head showed senescent changes without acute intracranial abnormality -Chest x-ray negative for acute cardiopulmonary process -UA negative for infection -No acute abnormality on BMP -Ammonia elevated at 44 Plan: -Lactulose at 30 mg 4 times daily scheduled -Redirection if delirious (2) Ascites Code(s): R18.8 - Other ascites Status: Acute Plan: / to portal HTN. Status post paracentesis on 02/18. -Abdomen reaccumulating ascitic fluid, will likely need retap after 2 weeks or less, needs regular follow-up. Plan: -Continue nadolol -Continue Lasix -Continue Spironolactone (3) Weakness Code(s): R53.1 - Weakness Status: Acute Plan: Patient significant for unintended weight loss over the last year as well as increased weakness and muscle wasting. CT and last admission revealed no masses worrisome for cancer in the chest abdomen or pelvis. -Con't regular diet (w/sodium restriction) plus Ensure supplementation (4) Cirrhosis of liver Code(s): K74.60 - Unspecified cirrhosis of liver Status: Acute Plan: Diagnosed with cirrhosis of the liver over 20 years ago. Received no medical treatment until recently. Also found to be hepatitis C positive. -Child's Saba score of 11 class C indicating life expectancy of 1-3 years -Meld-sodium score of 16 indicating less than 2% 90-day mortality -SAAG from paracentisis on 02/18 1.9, indicated portal HTN -Endoscopy/colonoscopy on 02/20 significant for rectal varices as well as signs of portal hypertension gastropathy -AFP within normal limits at 7.8 Plan: Follow-up with outpatient GI (5) Hepatitis C antibody test positive Code(s): R76.8 - Other specified abnormal immunological findings in serum Status: Acute Plan: Hepatitis C IgG antibody reactive -Hepatitis C RNA viral load 63,200 -Hepatitis C genotype 1B -Follow up with GI outpatient (6) History of esophageal varices with bleeding Code(s): Z87.19 - Personal history of other diseases of the digestive system Status: Acute Plan: Patient has history of esophageal varices with bleeding 20 years ago when initially diagnosed with cirrhosis. H&H stable. -Continue to trend H/H Fluids: Not indicated at this time Electrolytes: Replete as needed Nutrition: Regular diet with sodium restriction 2 g daily as well as fluid restriction 1500 mL daily and Ensure supplement with every meal DVT prophylaxis: Enoxaparin 40 mg subcu <Saurabh Hand - 02/26/18 17:44> - Attending Attestation The exam, history, and the medical decision-making described in the above note were completed with the assistance of the resident physician. I reviewed and agree with the findings presented. I attest that I had a [id number] encounter with the patient on the same day, and personally performed and documented my assessment and findings in the medical record. Patient seen with Dr. Molina and Dr. Pfeiffer. This patient has end stage liver disease secondary to liver cirrhosis. Liver cirrhosis likely secondary to a combination of alcoholism (not current) and hepatitis C (current). He is returning to the hospital with his due to confusion and increased sleepiness at home. Findings are consistent with hepatic encephalopathy, but will continue broad workup to rule out other causes of his altered mental status. Will initiate lactulose treatment with goal to have 3 stools per day. During our exam he is already better, alert and oriented X3 and answering all questions appropriately. Neuro exam CN intact, normal upper and lower extremity strength and sensation, no asterixis, no pronator drift. Has jaundice on exam. Ascites slightly worse than during his prior hospital stay. Cachectic appearance. Slowed but coherent responses. Was sleeping initially but easy to arouse. <Gurinder Bazzi - 02/27/18 14:17>
[2018-02-26] MEDS ORDERED: Bisacodyl 10 MG Supp RECTAL PRN (14:43)
[2018-02-26] MEDS ORDERED: Acetaminophen 325 MG Tablet PO PRN (14:43)
[2018-02-26] MEDS ORDERED: Enoxaparin Inj 40 MG/0.4 ML Syringe SQ SCH (14:45)
[2018-02-26 15:21] LABS: VBG Base Excess 2.3 mmol/L (-2-2); VBG Blood Gas Oxygen Content 7.5 Vol % (9.0-17.0); VBG PCO2 40 mmHG (44-48); VBG PH 7.43 (7.360-7.400); VBG PO2 27 mmHG (35-40)
--- NOTE | 2018-02-26 16:10 | MG ---
cc: Mona Blood MD EEG NUMBER: [id number] Molina. Room 854. Awake, drowsy, asleep with photic done. CT shows chronic changes without anything acute. Admitted 72-year-old man with 4 days of weakness, confusion, jaundice, history of hepatitis C cirrhosis. Medications on board are none prescribed. DESCRIPTION OF RECORD: The patient has some slowing of background predominantly of 3-4 Hz. Eye movement artifact noted. Some triphasics are seen as well. No appreciable epileptiform features. Photic stimulation without any significant driving response. IMPRESSION: Abnormal EEG due to mild to moderate slowing of background with some triphasic waves that can be seen in encephalopathic process, metabolic versus other. Clinical correlation. oMna Blood MD DF/ct , 03:58 PM , 04:04 PM
[2018-02-26] MEDS: Furosemide 40 MG Tablet PO SCH (18:04)
[2018-02-26] MEDS: Senna/Docusate Sodium 8.6/50 MG Tablet PO SCH (20:22)
[2018-02-27 07:16] LABS: Baso # (Auto) 0.1 th/mm3 (0.0-0.2); Baso % (Auto) 0.9 % (0.0-2.0); Eos # (Auto) 0.2 th/mm3 (0.0-0.4); Eos % (Auto) 2.6 % (0.0-4.0); Hematocrit 38.7 % (39.0-51.0); Hemoglobin 13.5 gm/dL (13.0-17.0); Mean Corpuscular Hemoglobin 35.4 pg (27.0-34.0); Mean Corpuscular Volume 101.3 fL (80.0-100.0); Mean Platelet Volume 9.9 fL (7.0-11.0); Mono # (Auto) 1.6 th/mm3 (0.0-0.9); Neut # (Auto) 5.7 th/mm3 (1.8-7.7); Neut % (Auto) 65.5 % (16.0-70.0); Platelet Count 141 th/mm3 (150-450); Red Blood Count 3.82 mil/mm3 (4.50-5.90); Red Cell Distribution Width 15.1 % (11.6-17.2); White Blood Count 8.7 th/mm3 (4.0-11.0)
[2018-02-27 07:40] LABS: Alanine Aminotransferase 21 U/L (12-78); Anion Gap 7 meq/L (5-15); Aspartate Aminotransferase 27 U/L (15-37); Blood Urea Nitrogen 18 mg/dL (7-18); Calcium 7.9 mg/dL (8.5-10.1); Carbon Dioxide 22.7 meq/L (21.0-32.0); Chloride 106 meq/L (98-107); Glomerular Filtration Rate Greater Than 89 mL/min (>89); Glucose,Random 91 mg/dL (74-106); Potassium 4.3 meq/L (3.5-5.1); Sodium 136 meq/L (136-145)
[2018-02-27 07:42] LABS: Alkaline Phosphatase 77 U/L (45-117); Total Protein 6.2 g/dL (6.4-8.2)
[2018-02-27] MEDS: Nadolol 20 MG Tablet PO SCH (09:32)
[2018-02-27] MEDS: Senna/Docusate Sodium 8.6/50 MG Tablet PO SCH ×2 (09:32→21:57)
[2018-02-27] MEDS: Furosemide 40 MG Tablet PO SCH ×4 (09:32→18:34)
--- NOTE | 2018-02-27 14:02 | P.PNFP ---
Subjective Interval history: This patient was seen at bedside this morning. Patient had no acute events overnight. Patient was seen in the presence of his , daughter, and son-in- law. Per patient he continues to feel weak but does feel a little better today. He also reports not having a bowel movement since admission. A lengthy discussion was had with family as well as patient about patient's current status , prognosis, medication regimen, as well as differential and treatment. Questions about GI treatment as well as hepatitis C treatment and possibility for biopsy were also discussed with family. After discussion regarding patient' s condition and prognosis the patient and family reported understanding, had no further questions, and thanked us for our care. <Saurabh Hand O - 02/27/18 14:21> Results - Labs Result diagrams: 02/27/18 06:42 02/27/18 06:42 <Gurinder Bazzi L - 02/27/18 14:47> Abnormal lab results 02/26/18 02/27/18 02/27/18 Range/Units 15:12 06:42 06:42 RBC 3.82 L (4.50-5.90) mil/mm3 Hct 38.7 L (39.0-51.0) % MCV 101.3 H (80.0-100.0) fL MCH 35.4 H (27.0-34.0) pg Plt Count 141 L (150-450) th/mm3 Swain % (Auto) 19.0 H (0.0-8.0) % Swain # (Auto) 1.6 H (0.0-0.9) th/mm3 VBG pH 7.43 H (7.360-7.400) VBG pCO2 40 L (44-48) mmHG VBG pO2 27 L* (35-40) mmHG VBG O2 Saturation 41 L (70-76) % VBG O2 Content 7.5 L (9.0-17.0) Vol % VBG Base Excess 2.3 H (-2-2) mmol/L Calcium 7.9 L (8.5-10.1) mg/dL Total Bilirubin 2.7 H (0.2-1.0) mg/dL Ammonia (11-32) mcmol/L Total Protein 6.2 L (6.4-8.2) g/dL Albumin 2.0 L (3.4-5.0) g/dL 02/27/18 Range/Units 06:42 RBC (4.50-5.90) mil/mm3 Hct (39.0-51.0) % MCV (80.0-100.0) fL MCH (27.0-34.0) pg Plt Count (150-450) th/mm3 Swain % (Auto) (0.0-8.0) % Swain # (Auto) (0.0-0.9) th/mm3 VBG pH (7.360-7.400) VBG pCO2 (44-48) mmHG VBG pO2 (35-40) mmHG VBG O2 Saturation (70-76) % VBG O2 Content (9.0-17.0) Vol % VBG Base Excess (-2-2) mmol/L Calcium (8.5-10.1) mg/dL Total Bilirubin (0.2-1.0) mg/dL Ammonia 83 H (11-32) mcmol/L Total Protein (6.4-8.2) g/dL Albumin (3.4-5.0) g/dL Short CBC 02/27/18 Range/Units 06:42 WBC 8.7 (4.0-11.0) th/mm3 Hgb 13.5 (13.0-17.0) gm/dL Hct 38.7 L (39.0-51.0) % Plt Count 141 L (150-450) th/mm3 BMP 02/27/18 06:42 Sodium 136 Potassium 4.3 Chloride 106 Carbon Dioxide 22.7 BUN 18 Creatinine 0.79 Calcium 7.9 L Liver Function 02/27/18 Range/Units 06:42 Total Bilirubin 2.7 H (0.2-1.0) mg/dL AST 27 (15-37) U/L ALT 21 (12-78) U/L Alkaline Phosphatase 77 (45-117) U/L Albumin 2.0 L (3.4-5.0) g/dL <Gurinder Bazzi - 02/27/18 14:47> Abnormal lab results 02/26/18 02/27/18 02/27/18 Range/Units 15:12 06:42 06:42 RBC 3.82 L (4.50-5.90) mil/mm3 Hct 38.7 L (39.0-51.0) % MCV 101.3 H (80.0-100.0) fL MCH 35.4 H (27.0-34.0) pg Plt Count 141 L (150-450) th/mm3 Swain % (Auto) 19.0 H (0.0-8.0) % Swain # (Auto) 1.6 H (0.0-0.9) th/mm3 VBG pH 7.43 H (7.360-7.400) VBG pCO2 40 L (44-48) mmHG VBG pO2 27 L* (35-40) mmHG VBG O2 Saturation 41 L (70-76) % VBG O2 Content 7.5 L (9.0-17.0) Vol % VBG Base Excess 2.3 H (-2-2) mmol/L Calcium 7.9 L (8.5-10.1) mg/dL Total Bilirubin 2.7 H (0.2-1.0) mg/dL Ammonia (11-32) mcmol/L Total Protein 6.2 L (6.4-8.2) g/dL Albumin 2.0 L (3.4-5.0) g/dL 02/27/18 Range/Units 06:42 RBC (4.50-5.90) mil/mm3 Hct (39.0-51.0) % MCV (80.0-100.0) fL MCH (27.0-34.0) pg Plt Count (150-450) th/mm3 Swain % (Auto) (0.0-8.0) % Swain # (Auto) (0.0-0.9) th/mm3 VBG pH (7.360-7.400) VBG pCO2 (44-48) mmHG VBG pO2 (35-40) mmHG VBG O2 Saturation (70-76) % VBG O2 Content (9.0-17.0) Vol % VBG Base Excess (-2-2) mmol/L Calcium (8.5-10.1) mg/dL Total Bilirubin (0.2-1.0) mg/dL Ammonia 83 H (11-32) mcmol/L Total Protein (6.4-8.2) g/dL Albumin (3.4-5.0) g/dL Short CBC 02/27/18 Range/Units 06:42 WBC 8.7 (4.0-11.0) th/mm3 Hgb 13.5 (13.0-17.0) gm/dL Hct 38.7 L (39.0-51.0) % Plt Count 141 L (150-450) th/mm3 BMP 02/27/18 06:42 Sodium 136 Potassium 4.3 Chloride 106 Carbon Dioxide 22.7 BUN 18 Creatinine 0.79 Calcium 7.9 L Liver Function 02/27/18 Range/Units 06:42 Total Bilirubin 2.7 H (0.2-1.0) mg/dL AST 27 (15-37) U/L ALT 21 (12-78) U/L Alkaline Phosphatase 77 (45-117) U/L Albumin 2.0 L (3.4-5.0) g/dL <Saurabh Hand - 02/27/18 14:02> Physical Exam Vital signs: Vital Signs 02/26/18 15:44 02/26/18 17:46 02/26/18 20:00 Temperature 97.8 F 97.9 F Pulse Rate 62 59 L 67 Respiratory Rate 20 18 18 Blood Pressure 124/62 121/71 117/65 Pulse Oximetry 98 100 99 02/27/18 00:00 02/27/18 04:00 02/27/18 08:35 Temperature 97.9 F 98.0 F 97.9 F Pulse Rate 67 68 68 Respiratory Rate 18 18 16 Blood Pressure 114/63 113/56 L 114/71 Pulse Oximetry 97 98 99 02/27/18 12:03 Temperature 98.1 F Pulse Rate 67 Respiratory Rate 18 Blood Pressure 118/70 Pulse Oximetry 98 Intake & Output 02/26/18 02/27/18 02/27/18 18:59 06:59 18:59 Intake Total 1240 / 1240 Output Total 1100 / 1100 Balance 140 / 140 Weight 74.843 kg 61.8 kg Intake: IV 1000 / 1000 NS Inj 1,000 ML @ Wide Open IV. 1000 / 1000 SIG BOLUS ONE Rx#:[id number] Oral 240 / 240 Output: Urine 1100 / 1100 <Gurinder Bazzi - 02/27/18 14:47> Vital Signs 02/26/18 15:44 02/26/18 17:46 02/26/18 20:00 Temperature 97.8 F 97.9 F Pulse Rate 62 59 L 67 Respiratory Rate 20 18 18 Blood Pressure 124/62 121/71 117/65 Pulse Oximetry 98 100 99 02/27/18 00:00 02/27/18 04:00 02/27/18 08:35 Temperature 97.9 F 98.0 F 97.9 F Pulse Rate 67 68 68 Respiratory Rate 18 18 16 Blood Pressure 114/63 113/56 L 114/71 Pulse Oximetry 97 98 99 02/27/18 12:03 Temperature 98.1 F Pulse Rate 67 Respiratory Rate 18 Blood Pressure 118/70 Pulse Oximetry 98 Intake & Output 02/26/18 02/27/18 02/27/18 18:59 06:59 18:59 Intake Total 1240 / 1240 Output Total 1100 / 1100 Balance 140 / 140 Weight 74.843 kg 61.8 kg Intake: IV 1000 / 1000 NS Inj 1,000 ML @ Wide Open IV. 1000 / 1000 SIG BOLUS ONE Rx#:[id number] Oral 240 / 240 Output: Urine 1100 / 1100 <Saurabh Hand 02/27/18 14:02> Narrative: GENERAL: Thin cachectic appearing white gentleman that is tired but arousable. Laying quietly in bed. SKIN: Warm and dry. No rash. Minor spider angiomata over abdomen and chest. Some minor erythema overlying home. EYES: Scleral icterus, without injection or drainage. CARDIOVASCULAR: Regular rate and rhythm without obvious murmurs, gallops, or rubs. RESPIRATORY: Breath sounds equal bilaterally. No accessory muscle use. CTAB. GASTROINTESTINAL: Abdomen distended with positive fluid wave. Prominent veins across the abdomen with, beginnings of caput medusa appreciated. MUSCULOSKELETAL: No cyanosis or edema. normal ROM NEURO/PSYCH: Alert and oriented x3. No asterixis cranial nerves II through XII grossly intact. No pronator drift. <Saurabh Hand 02/27/18 14:21> Assessment and Plan - Assessment (1) Acute hepatic encephalopathy Code(s): K72.00 - Acute and subacute hepatic failure without coma Status: Acute (2) Cirrhosis of liver Code(s): K74.60 - Unspecified cirrhosis of liver Status: Acute (3) Ascites Code(s): R18.8 - Other ascites Status: Acute (4) Weakness Code(s): R53.1 - Weakness Status: Acute (5) Hepatitis C antibody test positive Code(s): R76.8 - Other specified abnormal immunological findings in serum Status: Acute (6) History of esophageal varices with bleeding Code(s): Z87.19 - Personal history of other diseases of the digestive system Status: Acute <Gurinder Bazzi - 02/27/18 14:47> (1) Acute hepatic encephalopathy Code(s): K72.00 - Acute and subacute hepatic failure without coma Status: Acute Plan: This patient is a 72-year-old male with a history of liver cirrhosis diagnosed 20 years ago, recently discharged from [place] after being treated for acute liver failure complicated by ascites who presents the ED with a 3-day history of waxing waning confusion. Differential diagnosis includes acute hepatic encephalopathy, acute infection, metabolic disturbance, CVA, anemia, and delirium. Infection: -Afebrile -White count of 8.7, with no obvious source of infection -Chest x-ray negative for acute cardiopulmonary process -UA negative for infection Anemia: -Macrocytic anemia stable, hemoglobin 13.5 CVA ruled out with: -CT of the head showed senescent changes without acute intracranial abnormality Metabolic: -No acute abnormality on BMP Hepatic encephalopathy: -Ammonia elevated at 83 -EEG showed encephalopathic process -VBG 7.4 / -No stool in over 24 hours Plan: -Lactulose at 30 mg 4 times daily scheduled -Rifaximin 400 mg p.o. every 8 -Redirection if delirious (2) Cirrhosis of liver Code(s): K74.60 - Unspecified cirrhosis of liver Status: Acute Plan: Diagnosed with cirrhosis of the liver over 20 years ago. Received no medical treatment until recently. Also found to be hepatitis C positive. -Child's Saba score of 11 class C indicating life expectancy of 1-3 years -Meld-sodium score of 16 indicating less than 2% 90-day mortality -SAAG from paracentisis on 02/18 1.9, indicated portal HTN -Endoscopy/colonoscopy on 02/20 significant for rectal varices as well as signs of portal hypertension gastropathy -AFP within normal limits at 7.8 Plan: -Follow-up with GI consult (3) Ascites Code(s): R18.8 - Other ascites Status: Acute Plan: 2/2 to portal HTN. Status post paracentesis on 02/18. -Abdomen reaccumulating ascitic fluid, will likely need retap after 2 weeks or less, needs regular follow-up. Plan: -Continue nadolol 20 mg daily -Continue furosemide 40 mg 3 times daily -Continue Spironolactone 300 mg p.o. daily -Consider paracentesis if ascites rapidly worsens (4) Weakness Code(s): R53.1 - Weakness Status: Acute Plan: Patient significant for unintended weight loss over the last year as well as increased weakness and muscle wasting. CT and last admission revealed no masses worrisome for cancer in the chest abdomen or pelvis. -Con't regular diet (w/sodium restriction) plus Ensure supplementation (5) Hepatitis C antibody test positive Code(s): R76.8 - Other specified abnormal immunological findings in serum Status: Acute Plan: Hepatitis C IgG antibody reactive -Hepatitis C RNA viral load 63,200 -Hepatitis C genotype 1B -Follow up with GI consult (6) History of esophageal varices with bleeding Code(s): Z87.19 - Personal history of other diseases of the digestive system Status: Acute Plan: Patient has history of esophageal varices with bleeding 20 years ago when initially diagnosed with cirrhosis. H&H stable. -Continue to trend H/H Fluids: Not indicated at this time Electrolytes: Replete as needed Nutrition: Regular diet with sodium restriction 2 g daily as well as fluid restriction 1500 mL daily and Ensure supplement with every meal DVT prophylaxis: Enoxaparin 40 mg subcu <Saurabh Hand - 02/27/18 14:23> - Attending Attestation The exam, history, and the medical decision-making described in the above note were completed with the assistance of the resident physician. I reviewed and agree with the findings presented. I attest that I had a [id number] encounter with the patient on the same day, and personally performed and documented my assessment and findings in the medical record. I evaluated patient alongside Dr. Molina and Dr. Caro. He is alert, oriented X3, no focal deficits on examination. Agree with adding Rifaximin to regimen, with goal to have 3 BM's a day to help prevent hepatic encephalopathy. Also agree with increasing diuretics to help with abdominal ascites. Also agree with adding GI consultation for multidisciplinary approach. Discussed management plan and issues of prognosis and expected disease course with family at length, including , daughter, and son-in-law. <Gurinder Bazzi - 02/27/18 14:47>
--- NOTE | 2018-02-27 14:42 | ECG ---
Date Performed: 02/26/2018 Time Performed: 12:08:53 PTAGE: 72 years EKG: Sinus rhythm WITH MARKED SINUS ARRHYTHMIA LOW QRS VOLTAGE IN PRECORDIAL LEADS BORDERLINE ECG Since PREVIOUS TRACING , no significant change noted PREVIOUS TRACIN02/19/2018 19.47 DOCTOR: Michael Cottrell Interpretating Date/Time 02/27/2018 14:39:58
[2018-02-28 07:50] LABS: Baso % (Auto) 0.5 % (0.0-2.0); Eos # (Auto) 0.2 th/mm3 (0.0-0.4); Eos % (Auto) 2.1 % (0.0-4.0); Hematocrit 35.7 % (39.0-51.0); Hemoglobin 12.9 gm/dL (13.0-17.0); Lymph # (Auto) 1.1 th/mm3 (1.0-4.8); Lymph % (Auto) 13.2 % (9.0-44.0); Mean Corpuscular Hemoglobin 35.9 pg (27.0-34.0); Mean Corpuscular Volume 99.1 fL (80.0-100.0); Mean Platelet Volume 9.5 fL (7.0-11.0); Mono # (Auto) 1.4 th/mm3 (0.0-0.9); Mono % (Auto) 17.6 % (0.0-8.0); Neut # (Auto) 5.4 th/mm3 (1.8-7.7); Neut % (Auto) 66.6 % (16.0-70.0); Platelet Count 129 th/mm3 (150-450); Red Cell Distribution Width 15.4 % (11.6-17.2); White Blood Count 8.1 th/mm3 (4.0-11.0)
[2018-02-28 08:05] LABS: Anion Gap 6 meq/L (5-15); Blood Urea Nitrogen 20 mg/dL (7-18); Calcium 7.7 mg/dL (8.5-10.1); Chloride 104 meq/L (98-107); Glomerular Filtration Rate Greater Than 89 mL/min (>89); Glucose,Random 86 mg/dL (74-106); Mean Corpuscular HGB Conc 36.2 % (32.0-36.0); Potassium 4.2 meq/L (3.5-5.1); Sodium 134 meq/L (136-145)
--- NOTE | 2018-02-28 08:59 | P.DIET ---
Nutritional Evaluation Type of nutrition evaluation: initial Nutrition screening[place] [facility] [place]: 02/26 [facility] [place]nutrition Objective - Diagnosis Hyperammonemia, AMS, weakness - Objective % IBW: 88 (IBW: 154lbs) Body Weight Used for Calculations: Actual (61.8kg) Energy Needs - Lower Range (kCal/kg): 30 Energy Needs - Upper Range (kCal/kg): 35 Lower Limit kCal/kg (kCals): 1,854 Upper Limit kCal/kg (kCals): 2,163 Lower Limit Protein Factor (Grams per Kg): 1 Upper Limit Protein Factor (Grams per Kg): 1.2 Lower Protein Needs (Protein): 62 Upper Protein Needs (Protein): 74 Dietitian Reviewed in Medical Record: Current diet, Curent medications, Intake & Output, Labs, Medical history Diet Order: 2 gm Na w/1500mls FR, Ensure TID Objective Comments: PMH: Advanced Hepatic Cirrhosis, CHF, HTN Labs include: Na 134, Ammonia 133 Meds include: Lasix, Lactulose, Xifaxan -BM Assessment Assessment: Pt at high nutritional risk r/t current clinical status. Pt admitted with AMS, weakness, hyperammonemia. Noted ammonia elevated at 133, pt with acute encephalopathy. Per MD note: patient with significant wt loss over the past year , muscle wasting. Pt with advanced hepatic cirrhosis, dx 20 years ago. Pt's nutritional needs as assessed above. Only one meal's po intake reported, pt at 75%. Adequate po intake has not yet been established. Pt receiving Ensure tid, each bottle contains 250kcals and 9gms protein. GI consult pending. Will monitor pt's po intake, clinical course. Recommendations: 2gm Na diet with FR 1500mls Ensure tid
--- NOTE | 2018-02-28 09:47 | P.CONGI ---
History of Present Illness Consult date: 02/28/18 Consult reason: Cirrhosis, family has many questions Chief complaint: hyperammonemia, AMS, weakness History of Present Illness: This is a 72-year-old male with past medical history significant for liver cirrhosis diagnosed 20 years ago, hep-C (tx naive). Hasn't been following up with provider as an OP, no previous tertiary eval. His cirrhosis is complicated by varices, ascites and now hepatic encephalopathy. Patient had recent admission and was evaluated by our GI services, under went EGD/colonoscopy and paracentesis 2X. Patient was brought by family due to AMS. endorses increased confusion, not able to preform daily activities resulting in panic attack and has required several redirections. Patient hasn't been on medications at home for ammonia. He is taking Aldactone 200 mg daily, Lasix 40 mg daily, and Nadolol 20 mg daily. Patient denies nausea, vomiting, hematemesis , abd pain, melena or hematochezia. During last admission, pt had Paracentesis ( 02/18/18) 7,000 mL removed S/P repeat paracentesis (02/22/18) 7800 mL removed.Hepatitis C antibody (+), genotype 1b quant 63,200, TRISH, ASMA, AMA negative, normal A1A and normal ceruloplasmin. AFP 7.8. CT abd/pelvis WO IV contrast (02/18) Large volume ascites throughout the abdomen and pelvis. Small irregular liver characteristic of cirrhosis. Gallstones in the gallbladder. No biliary tract obstruction. A few small stones are seen along the base of the urinary bladder on the right side. Left inguinal hernia containing ascites. EGD 02/20/18 --> Medium size varices, no stigmata of active or recent bleeding. Portal hypertensive gastropathy was found in the entire examined stomach. Normal duodenal mucosa in the 2nd part of the duodenum. Colonoscopy 02/20/18 -- > large rectal varices no stigmata of active or recent bleeding. Small angiodysplastic lesion, the cecum, and in the ascending colon. I spoke to on the phone and was able to obtain hx. Pt is awake, alert but lethargic, having hard time speaking. <Cecily Hernandez - Last Filed: 02/28/18 09:50> Review of Systems All other systems reviewed negative except as stated in HPI <MaryLisaorville - Last Filed: 02/28/18 09:50> PMFSH - History History Provided By: Patient - Medical History Medical History: Medical History (Last Reviewed 02/26/18 @ 13:53 by HORACE Green) Advanced hepatic cirrhosis CHF (congestive heart failure) HTN (hypertension) - Tobacco History Second Hand Smoke Exposure: No Tobacco Use In Past 30 Days: No Smoking Status: Former smoker Tobacco Type: Cigarettes - Alcohol History How Often Do You Have a Drink Containing Alcohol: Never - Substance Use History Substance History: Past History - Substance Use Type Alcohol Status: Sustained Remission - Travel History Recent Travel in the [place] Within the Last 8 Weeks: No Recent Travel Out of the Country Within the Last 8 Weeks: No - Immunization History Tetanus Immunization: Unsure <Cecily Hernandez - Last Filed: 02/28/18 09:50> - Medical History Medical History: Medical History (Last Reviewed 02/26/18 @ 13:53 by HORACE Green) Advanced hepatic cirrhosis CHF (congestive heart failure) HTN (hypertension) <Vannessa Barron - Last Filed: 02/28/18 14:28> Medications and Allergies Active Medications: Active Medications Al Hydroxide/Mg Hydroxide (Milk Of Magnesia Liq) 30 ml PO Q12H PRN PRN Reason: Mild Constipation Bisacodyl (Dulcolax Supp) 10 mg RECTAL DAILY PRN PRN Reason: SEVERE CONSITIPATION Furosemide (Lasix) 40 mg PO TID [facility] Last Admin: 02/27/18 18:34 Dose: 40 mg Lactulose (Lactulose Liq) 30 ml PO DAILY PRN PRN Reason: SEVERE CONSITIPATION Lactulose (Lactulose Liq) 30 ml PO QID [facility] Last Admin: 02/27/18 21:57 Dose: 30 ml Nadolol (Corgard) 20 mg PO DAILY [facility] Last Admin: 02/27/18 09:32 Dose: 20 mg Ondansetron HCl (Zofran Inj) 4 mg IV.PUSH Q6H PRN PRN Reason: NAUSEA OR VOMITING Last Admin: 02/27/18 09:32 Dose: 4 mg Rifaximin (Xifaxan) 400 mg PO Q8HR [facility] Last Admin: 02/28/18 05:19 Dose: 400 mg Senna/Docusate Sodium (Jessica-Colace) 1 tab PO BID [facility] Last Admin: 02/27/18 21:57 Dose: 1 tab Sennosides (Senokot) 17.2 mg PO Q12H PRN PRN Reason: Moderate Constipation Sodium Chloride (Ns Flush) 2 ml IV.FLUSH BID [facility] Last Admin: 02/27/18 21:57 Dose: 2 ml Sodium Chloride (Ns Flush) 2 ml IV.FLUSH PRN PRN PRN Reason: FLUSH AFTER USING IV ACCESS Spironolactone (Aldactone) 300 mg PO DAILY [facility] Last Admin: 02/27/18 14:02 Dose: 300 mg <Cecily Hernandez - Last Filed: 02/28/18 09:50> Active Medications: Active Medications Al Hydroxide/Mg Hydroxide (Milk Of Magnesia Liq) 30 ml PO Q12H PRN PRN Reason: Mild Constipation Bisacodyl (Dulcolax Supp) 10 mg RECTAL DAILY PRN PRN Reason: SEVERE CONSITIPATION Furosemide (Lasix) 40 mg PO TID [facility] Last Admin: 02/28/18 11:45 Dose: 40 mg Albumin Human (Flexbumin 25% Inj) 50 mls @ 60 mls/hr IV.SIG Q12H [facility] Stop: 03/02/18 06:00 Last Infusion: 02/28/18 12:53 Dose: Infused Lactulose (Lactulose Liq) 30 ml PO DAILY PRN PRN Reason: SEVERE CONSITIPATION Lactulose (Lactulose Liq) 30 ml PO QID [facility] Last Admin: 02/28/18 11:46 Dose: 30 ml Nadolol (Corgard) 20 mg PO DAILY [facility] Last Admin: 02/28/18 11:46 Dose: Not Given Ondansetron HCl (Zofran Inj) 4 mg IV.PUSH Q6H PRN PRN Reason: NAUSEA OR VOMITING Last Admin: 02/27/18 09:32 Dose: 4 mg Rifaximin (Xifaxan) 400 mg PO Q8HR [facility] Last Admin: 02/28/18 05:19 Dose: 400 mg Senna/Docusate Sodium (Jessica-Colace) 1 tab PO BID [facility] Last Admin: 02/28/18 11:50 Dose: 1 tab Sennosides (Senokot) 17.2 mg PO Q12H PRN PRN Reason: Moderate Constipation Sodium Chloride (Ns Flush) 2 ml IV.FLUSH BID [facility] Last Admin: 02/28/18 11:54 Dose: 2 ml Sodium Chloride (Ns Flush) 2 ml IV.FLUSH PRN PRN PRN Reason: FLUSH AFTER USING IV ACCESS Spironolactone (Aldactone) 300 mg PO DAILY [facility] Last Admin: 02/28/18 11:46 Dose: 300 mg <Vannessa Barron - Last Filed: 02/28/18 14:28> Allergies Allergy/AdvReac Type Severity Reaction Status Date / Time No Known Allergies Allergy Verified 02/26/18 11:01 Exam Vital signs: Vital Signs 02/27/18 12:03 02/27/18 16:17 02/27/18 20:00 Temperature 98.1 F 98.1 F 98.4 F Pulse Rate 67 73 66 Respiratory Rate 18 16 15 Blood Pressure 118/70 115/66 130/64 Pulse Oximetry 98 98 99 02/28/18 00:00 02/28/18 04:00 02/28/18 04:37 Temperature 98.4 F 98.5 F Pulse Rate 69 65 Respiratory Rate 15 15 18 Blood Pressure 102/55 L 107/58 L Pulse Oximetry 99 94 L Intake & Output 02/27/18 02/28/18 02/28/18 18:59 06:59 18:59 Intake Total 240 / 240 Output Total 800 / 800 1100 / 1100 Balance -560 / -560 -1100 / -1100 Weight 62 kg Intake: Oral 240 / 240 Output: Urine 800 / 800 1100 / 1100 - Constitutional no acute distress - Routine HEENT Exam Head: Present: normocephalic - Routine Respiratory Exam Present: CTA bilaterally - Routine Cardiovascular Exam Present: RRR - Routine Abdominal Exam Present: soft, normoactive bowel sounds, organomegaly. Absent: tenderness, distended - Routine Skin Exam Present: intact, dry - Routine Neurological Exam Present: alert, altered mental status <Cecily Hernandez - Last Filed: 02/28/18 09:50> Vital signs: Vital Signs 02/27/18 16:17 02/27/18 20:00 02/28/18 00:00 Temperature 98.1 F 98.4 F 98.4 F Pulse Rate 73 66 69 Respiratory Rate 16 15 15 Blood Pressure 115/66 130/64 102/55 L Pulse Oximetry 98 99 99 02/28/18 04:00 02/28/18 04:37 02/28/18 07:55 Temperature 98.5 F 97.7 F Pulse Rate 65 65 Respiratory Rate 15 18 16 Blood Pressure 107/58 L 93/55 L Pulse Oximetry 94 L 98 02/28/18 08:00 02/28/18 12:00 Temperature 97.9 F Pulse Rate 65 Respiratory Rate Blood Pressure 123/69 Pulse Oximetry 98 97 Intake & Output 02/27/18 02/28/18 02/28/18 18:59 06:59 18:59 Intake Total 240 / 240 50 / 50 Output Total 800 / 800 1100 / 1100 Balance -560 / -560 -1100 / -1100 50 / 50 Weight 62 kg Intake: IV 50 / 50 Flexbumin 25% Inj 50 ML @ 60 50 / 50 mls/hr IV.SIG Q12H [facility] Rx#: [id number] Oral 240 / 240 Output: Urine 800 / 800 1100 / 1100 <Vannessa Barron - Last Filed: 02/28/18 14:28> Results - Labs CBC & Chem 7: 02/28/18 06:59 02/28/18 06:59 Labs: Laboratory Results - last 24 hr 02/28/18 02/28/18 02/28/18 06:59 06:59 06:59 WBC 8.1 RBC 3.60 L Hgb 12.9 L Hct 35.7 L MCV 99.1 MCH 35.9 H MCHC 36.2 H RDW 15.4 Plt Count 129 L MPV 9.5 Prelim Diff (Auto) Slide review pending Neut % (Auto) 66.6 Lymph % (Auto) 13.2 [place] % (Auto) 17.6 H Eos % (Auto) 2.1 Baso % (Auto) 0.5 Neut # (Auto) 5.4 Lymph # (Auto) 1.1 [place] # (Auto) 1.4 H Eos # (Auto) 0.2 Baso # (Auto) 0.0 Differential Comment . Sodium 134 L Potassium 4.2 Chloride 104 Carbon Dioxide 24.0 Anion Gap 6 BUN 20 H Creatinine 0.83 Estimated GFR Greater than 89 Random Glucose 86 Calcium 7.7 L Ammonia 133 H - Imaging Chest X-Ray 02/26/18 11:24 CONCLUSION: Negative for acute process Head CT 02/26/18 11:24 CONCLUSION: 1. Senescent changes without acute intracranial abnormality. . <Cecily Hernandez - Last Filed: 02/28/18 09:50> - Labs CBC & Chem 7: 02/28/18 06:59 02/28/18 06:59 Labs: Laboratory Results - last 24 hr 02/28/18 02/28/18 02/28/18 06:59 06:59 06:59 WBC 8.1 RBC 3.60 L Hgb 12.9 L Hct 35.7 L MCV 99.1 MCH 35.9 H MCHC 36.2 H RDW 15.4 Plt Count 129 L MPV 9.5 Prelim Diff (Auto) Slide review pending Neut % (Auto) 66.6 Lymph % (Auto) 13.2 [place] % (Auto) 17.6 H Eos % (Auto) 2.1 Baso % (Auto) 0.5 Neut # (Auto) 5.4 Lymph # (Auto) 1.1 [place] # (Auto) 1.4 H Eos # (Auto) 0.2 Baso # (Auto) 0.0 WBC Differential . Diff Scan Auto diff confirmed Differential Comment . Platelet Estimate Low L Platelet Morphology Enlarged H Ovalocytes 1+ H PT INR Sodium 134 L Potassium 4.2 Chloride 104 Carbon Dioxide 24.0 Anion Gap 6 BUN 20 H Creatinine 0.83 Estimated GFR Greater than 89 Random Glucose 86 Calcium 7.7 L Ammonia 133 H 02/28/18 11:11 WBC RBC Hgb Hct MCV MCH MCHC RDW Plt Count MPV Prelim Diff (Auto) Neut % (Auto) Lymph % (Auto) [place] % (Auto) Eos % (Auto) Baso % (Auto) Neut # (Auto) Lymph # (Auto) [place] # (Auto) Eos # (Auto) Baso # (Auto) WBC Differential Diff Scan Differential Comment Platelet Estimate Platelet Morphology Ovalocytes PT 13.2 H INR 1.3 Sodium Potassium Chloride Carbon Dioxide Anion Gap BUN Creatinine Estimated GFR Random Glucose Calcium Ammonia <Vannessa Barron - Last Filed: 02/28/18 14:28> Assessment and Plan - Plan - Liver cirrhosis multifactorial secondary to history of ETOH abuse and Hepatitis C (tx naive)- Diagnosed 20 years ago, quit ETOH at time of diagnosis. Recent admission Liver work up during last admission AFP-7.8 Hepatitis C antibody (+), genotype 1b quant 63,200 TRISH, ASMA, AMA negative, normal A1A, normal ceruloplasmin CT abd/pelvis WO IV contrast (02/18) Large volume ascites throughout the abdomen and pelvis. Small irregular liver characteristic of cirrhosis. Gallstones in the gallbladder. No biliary tract obstruction. A few small stones are seen along the base of the urinary bladder on the right side. Left inguinal hernia containing ascites. - AMS- likely secondary to hepatic encephalopathy. Ammonia today is 133, pt not on meds at home for the ammonia Started on lactulose QID and Xifaxan - Thrombocytopenia, and hypoalbuminemia secondary to above - Ascites secondary to portal hypertension Paracentesis (02/18/18) 7,000 mL removed S/P repeat paracentesis (02/22/18) 7800 mL removed. On Spironolactone 200 daily and Furosemide 40 daily at home here in the hospital started on Lasix 40 TID and Aldactone 300 daily - Esophageal and rectal varices S/P EGD and colonoscopy 02/20/18 EGD --> Medium size varices, no stigmata of active or recent bleeding. Portal hypertensive gastropathy was found in the entire examined stomach. Normal duodenal mucosa in the 2nd part of the duodenum. Colonoscopy --> large rectal varices no stigmata of active or recent bleeding. Small angiodysplastic lesion, the cecum, and in the ascending colon. Pt on Nadolol 20 daily Repeat EGD and colonoscopy in 6 months. Plan: Clear liquid I spoke to on the phone and was able to obtain hx. Pt is awake, alert but lethargic, having hard time speaking. US Cont. Nadolol Cont. Diuretics Cont. lactulose Cont. Xifaxan Monitor labs Will give albumin Ammonia in the am Pt will need tertiary eval for possible liver transplant Pt seen and examined by Dr. Barron and myself and this note is written on her behalf <Cecily Hernandez - Last Filed: 02/28/18 09:50> - Attending Attestation seen, examined agree with above agree with palliative care nutritional consult consult IR for possible Douderoff tube insertion poor prognosis suspect some degree of depression too <Vannessa Barron - Last Filed: 02/28/18 14:28>
[2018-02-28 11:43] LABS: INR 1.3 Ratio; Prothrombin Time 13.2 sec (9.8-11.6)
[2018-02-28 11:45] LABS: Ovalocytes 1+
[2018-02-28] MEDS: Furosemide 40 MG Tablet PO SCH ×3 (11:45→18:36)
[2018-02-28] MEDS: Nadolol 20 MG Tablet PO SCH (11:46)
[2018-02-28] MEDS: Senna/Docusate Sodium 8.6/50 MG Tablet PO SCH ×2 (11:50→23:04)
--- NOTE | 2018-02-28 11:56 | P.PNFP ---
Subjective Interval history: Patient states that he is extremely lethargic this morning and feeling weak. Has no appetite, complains he does not like the hospital food but also feels too weak to do anything. States that he is suffering and does not think that he can go on any longer. Is feeling depressed. Is interested in speaking with palliative care. Son denies any pain or shortness of breath. Patient states that he will likely not be able to get a liver transplant. Thinks he is too sick at this time. <Sushila Rocha N - 02/28/18 11:56> Results - Labs Result diagrams: 02/28/18 06:59 03/01/18 07:30 <Gurinder Bazzi - 03/01/18 17:25> Abnormal lab results 02/28/18 03/01/18 03/01/18 Range/Units 17:36 07:30 07:30 PT (9.8-11.6) sec Sodium 135 L (136-145) meq/L BUN 22 H (7-18) mg/dL Estimated GFR 82 L (>89) mL/min Calcium 8.0 L (8.5-10.1) mg/dL Ammonia 75 H (11-32) mcmol/L Carcinoembryonic Ag 8.3 H (0.2-5.0) ng/mL 03/01/18 Range/Units 15:57 PT 13.1 H (9.8-11.6) sec Sodium (136-145) meq/L BUN (7-18) mg/dL Estimated GFR (>89) mL/min Calcium (8.5-10.1) mg/dL Ammonia (11-32) mcmol/L Carcinoembryonic Ag (0.2-5.0) ng/mL [facility] 03/01/18 07:30 Sodium 135 L Potassium 3.9 Chloride 103 Carbon Dioxide 23.8 BUN 22 H Creatinine 0.91 Calcium 8.0 L <Gurinder Bazzi - 03/01/18 17:25> Abnormal lab results 02/28/18 02/28/18 02/28/18 Range/Units 06:59 06:59 06:59 RBC 3.60 L (4.50-5.90) mil/mm3 Hgb 12.9 L (13.0-17.0) gm/dL Hct 35.7 L (39.0-51.0) % MCH 35.9 H (27.0-34.0) pg MCHC 36.2 H (32.0-36.0) % Plt Count 129 L (150-450) th/mm3 [place] % (Auto) 17.6 H (0.0-8.0) % [place] # (Auto) 1.4 H (0.0-0.9) th/mm3 Platelet Estimate Low L (Normal) Platelet Morphology Enlarged H (Normal) Ovalocytes 1+ H (None) PT (9.8-11.6) sec Sodium 134 L (136-145) meq/L BUN 20 H (7-18) mg/dL Calcium 7.7 L (8.5-10.1) mg/dL Ammonia 133 H (11-32) mcmol/L 02/28/18 Range/Units 11:11 RBC (4.50-5.90) mil/mm3 Hgb (13.0-17.0) gm/dL Hct (39.0-51.0) % MCH (27.0-34.0) pg MCHC (32.0-36.0) % Plt Count (150-450) th/mm3 [place] % (Auto) (0.0-8.0) % [place] # (Auto) (0.0-0.9) th/mm3 Platelet Estimate (Normal) Platelet Morphology (Normal) Ovalocytes (None) PT 13.2 H (9.8-11.6) sec Sodium (136-145) meq/L BUN (7-18) mg/dL Calcium (8.5-10.1) mg/dL Ammonia (11-32) mcmol/L Short CBC 02/28/18 Range/Units 06:59 WBC 8.1 (4.0-11.0) th/mm3 Hgb 12.9 L (13.0-17.0) gm/dL Hct 35.7 L (39.0-51.0) % Plt Count 129 L (150-450) th/mm3 BMP 02/28/18 06:59 Sodium 134 L Potassium 4.2 Chloride 104 Carbon Dioxide 24.0 BUN 20 H Creatinine 0.83 Calcium 7.7 L <Abid Sushila Arzate N - 02/28/18 11:56> - Imaging Impressions Liver Ultrasound 02/28/18 00:00 CONCLUSION: 1. Cirrhosis. 2. Moderate amount of ascites. 3. Diffuse nonspecific gallbladder wall thickening. Gallstones are demonstrated on recent CT. <Gurinder Bazzi L - 03/01/18 17:25> Physical Exam Vital signs: Vital Signs 02/28/18 18:34 02/28/18 20:00 03/01/18 00:00 Temperature 97.7 F 97.7 F 97.3 F L Pulse Rate 67 67 62 Respiratory Rate 15 19 17 Blood Pressure 105/59 L 105/57 L 110/69 Pulse Oximetry 99 98 95 03/01/18 04:00 03/01/18 04:01 03/01/18 07:05 Temperature 97.9 F 97.8 F Pulse Rate 62 64 Respiratory Rate 18 18 18 Blood Pressure 116/67 128/76 Pulse Oximetry 99 98 03/01/18 09:51 03/01/18 11:15 03/01/18 16:20 Temperature 97.8 F 98.5 F Pulse Rate 56 L 58 L Respiratory Rate 18 18 Blood Pressure 123/72 106/65 Pulse Oximetry 97 99 98 Intake & Output 02/28/18 03/01/18 03/01/18 18:59 06:59 18:59 Intake Total 50 / 50 50 / 50 50 / 50 Output Total 250 / 250 1700 / 1700 150 / 150 Balance -200 / -200 -1650 / -1650 -100 / -100 Weight 60.5 kg Intake: IV 50 / 50 50 / 50 50 / 50 Flexbumin 25% Inj 50 ML @ 60 50 / 50 50 / 50 50 / 50 mls/hr IV.SIG Q12H [facility] Rx#: [id number] Output: Urine 250 / 250 1700 / 1700 150 / 150 Other: # Voids 1 2 Date of Last Bowel Movement 03/01/18 # Bowel Movements 1 <Gurinder Bazzi [place] - 03/01/18 17:25> Vital Signs 02/27/18 12:03 02/27/18 16:17 02/27/18 20:00 Temperature 98.1 F 98.1 F 98.4 F Pulse Rate 67 73 66 Respiratory Rate 18 16 15 Blood Pressure 118/70 115/66 130/64 Pulse Oximetry 98 98 99 02/28/18 00:00 02/28/18 04:00 02/28/18 04:37 Temperature 98.4 F 98.5 F Pulse Rate 69 65 Respiratory Rate 15 15 18 Blood Pressure 102/55 L 107/58 L Pulse Oximetry 99 94 L 02/28/18 07:55 Temperature 97.7 F Pulse Rate 65 Respiratory Rate 16 Blood Pressure 93/55 L Pulse Oximetry 98 Intake & Output 02/27/18 02/28/18 02/28/18 18:59 06:59 18:59 Intake Total 240 / 240 Output Total 800 / 800 1100 / 1100 Balance -560 / -560 -1100 / -1100 Weight 62 kg Intake: Oral 240 / 240 Output: Urine 800 / 800 1100 / 1100 <Geetabeto Sushila Arzate - 02/28/18 11:56> Narrative: GENERAL: Thin cachectic appearing white gentleman that is tired but arousable. Laying quietly in bed. SKIN: Warm and dry. No rash. Minor spider angiomata over abdomen and chest. Some minor erythema overlying home. EYES: Scleral icterus, without injection or drainage. CARDIOVASCULAR: Regular rate and rhythm without obvious murmurs, gallops, or rubs. RESPIRATORY: Breath sounds equal bilaterally. No accessory muscle use. CTAB. GASTROINTESTINAL: Abdomen distended with positive fluid wave. Prominent veins across the abdomen with, beginnings of caput medusa appreciated. MUSCULOSKELETAL: No cyanosis or edema. normal ROM NEURO/PSYCH: Alert and oriented x3. No focal deficits. <Margarette Sushila Arzate - 02/28/18 11:56> Assessment and Plan - Assessment (1) Weakness Code(s): R53.1 - Weakness Status: Acute (2) Acute hepatic encephalopathy Code(s): K72.00 - Acute and subacute hepatic failure without coma Status: Acute (3) Cirrhosis of liver Code(s): K74.60 - Unspecified cirrhosis of liver Status: Acute (4) Ascites Code(s): R18.8 - Other ascites Status: Acute (5) Hepatitis C antibody test positive Code(s): R76.8 - Other specified abnormal immunological findings in serum Status: Acute (6) History of esophageal varices with bleeding Code(s): Z87.19 - Personal history of other diseases of the digestive system Status: Acute <Gurinder Bazzi - 03/01/18 17:25> (1) Weakness Code(s): R53.1 - Weakness Status: Acute Plan: Likely secondary to encephalopathy versus chronic liver failure -Con't regular diet (w/sodium restriction) plus Ensure supplementation -Dietary consulted -PT consulted, recommend rehab or home health care (2) Acute hepatic encephalopathy Code(s): K72.00 - Acute and subacute hepatic failure without coma Status: Acute Plan: Hepatic encephalopathy: -Ammonia increasing, 133 today -EEG showed encephalopathic process -VBG 7.4 / - GI consulted: Advised continued medical management. Plan to order ultrasound and give albumin. Advised tertiary eval for possible liver transplant. Plan: -Lactulose at 30 mg 4 times daily scheduled. Does not appear patient has had a bowel movement since yesterday but he is also not eating -Rifaximin 400 mg p.o. every 8 -Continue spironolactone and furosemide at current dose -Encourage p.o. intake to be able to secrete ammonia. Dietary consulted - Monitor daily ammonia - Consult to palliative care (3) Cirrhosis of liver Code(s): K74.60 - Unspecified cirrhosis of liver Status: Acute Plan: Diagnosed with cirrhosis of the liver over 20 years ago. Received no medical treatment until recently. Also found to be hepatitis C positive. -Child's Saba score of 11 class C indicating life expectancy of 1-3 years -Meld-sodium score of 16 indicating less than 2% 90-day mortality -SAAG from paracentisis on 02/18 1.9, indicated portal HTN -Endoscopy/colonoscopy on 02/20 significant for rectal varices as well as signs of portal hypertension gastropathy -AFP within normal limits at 7.8 Plan: -Outpatient f/u necessary, consider liver transplant (4) Ascites Code(s): R18.8 - Other ascites Status: Acute Plan: 2/2 to portal HTN. Status post paracentesis on 02/18. -Abdomen reaccumulating ascitic fluid, will likely need retap after 2 weeks or less, needs regular follow-up. Plan: -Continue nadolol 20 mg daily -Continue furosemide 40 mg 3 times daily -Continue Spironolactone 300 mg p.o. daily -Consider paracentesis if ascites rapidly worsens (5) Hepatitis C antibody test positive Code(s): R76.8 - Other specified abnormal immunological findings in serum Status: Acute Plan: Hepatitis C IgG antibody reactive -Hepatitis C RNA viral load 63,200 -Hepatitis C genotype 1B -Follow up with GI outpatient (6) History of esophageal varices with bleeding Code(s): Z87.19 - Personal history of other diseases of the digestive system Status: Acute Plan: Patient has history of esophageal varices with bleeding 20 years ago when initially diagnosed with cirrhosis. H&H stable. - Pursue further testing based on any changes on clinical exam Fluids: Not indicated at this time Electrolytes: Replete as needed Nutrition: Regular diet with sodium restriction 2 g daily as well as fluid restriction 1500 mL daily and Ensure supplement with every meal DVT prophylaxis: Enoxaparin 40 mg subcu <Sushila Rocha - 02/28/18 11:49> - Assessment and Plan Discharge Planning: Too weak at this time for discharge to SNF or [facility]. <Sushila Rocha 02/28/18 11:56> - Attending Attestation Attending note: Plan of care discussed with resident physician. Patient with 20 year history of cirrhosis, with acute decompensation with hepatic encephalopathy. Treating encephalopathy with lactulose and rifaximin. However, he is not having much bowel movements, likely due to poor nutrition as he has poor appetite and is not eating much. Liver enzymes and PT/INR are stable. Stable varices and ascites gradually accumulating. Continuing diuretics for the ascites, and beta lazarus for the hypertension. Consider stopping the beta lazarus if blood pressures are decreasing. Gastroenterology is on board helping to co-manage. Palliative care to discuss goals of care. <Gurinder Bazzi - 03/01/18 17:25>
[2018-02-28] MEDS: Albumin Human 25% Inj 50 ML IV.SIG SCH ×2 (12:02→23:03)
[2018-02-28 19:07] LABS: Alpha Fetoprotein Tumor Marker 5.9 ng/mL (0.5-8.0); Carcinoembryonic Antigen 8.3 ng/mL (0.2-5.0)
--- NOTE | 2018-02-28 20:56 | US ---
EXAM DATE: 02/28/2018 8:33 PM EST AGE/SEX: 72 years / Male INDICATIONS: Abdominal pain. CLINICAL DATA: This is the patient's initial encounter. Patient reports that signs and symptoms have been present for 1 day and indicates a pain score of 3/10. MEDICAL/SURGICAL HISTORY: Cirrhosis. Congestive heart failure. Hypertension. None. COMPARISON: [facility] – [place], CT ABDOMEN & PELVIS W/O CONTRAST, 02/18/2018. . MEASUREMENTS: Liver:__ 10.7 cm. Common Bile Duct:__ 6mm. Right Kidney:__ 9.1 x 6.7 x 3.8 cm. FINDINGS: Liver: Diffuse nodularity of the liver capsule indicating cirrhosis. No focal mass identified. Portal Vein: Hepatopedal flow seen in portal vein. Common Duct: No intraluminal mass or stone visualized. Gallbladder: Diffuse marked wall thickening of the gallbladder. No calculi are identified on this st udy. Calculi are seen on CT. Pancreas: Poorly visualized. Right Kidney: Increased echogenicity. No mass or hydronephrosis. Other: Spleen mildly enlarged measuring 12.8 cm. Moderate amount of ascites noted. CONCLUSION: 1. Cirrhosis. 2. Moderate amount of ascites. 3. Diffuse nonspecific gallbladder wall thickening. Gallstones are demonstrated on recent CT. Electronically signed by: Calixto Vargas MD Board Certified Radiologist 02/28/2018 8:55 PM EST
[2018-03-01 08:19] LABS: Carbon Dioxide 23.8 meq/L (21.0-32.0); Potassium 3.9 meq/L (3.5-5.1)
--- NOTE | 2018-03-01 09:50 | P.PNFP ---
Subjective Interval history: Patient seen and examined at bedside. Laying in bed stating that he still has abdominal pain. Drowsy during the interview, would like to speak to hospice about his care moving forward. <Petrona Moody - 03/01/18 09:51> Results - Labs Result diagrams: 02/28/18 06:59 03/01/18 07:30 <Gurinder Bazzi - 03/01/18 17:52> Abnormal lab results 02/28/18 03/01/18 03/01/18 Range/Units 17:36 07:30 07:30 PT (9.8-11.6) sec Sodium 135 L (136-145) meq/L BUN 22 H (7-18) mg/dL Estimated GFR 82 L (>89) mL/min Calcium 8.0 L (8.5-10.1) mg/dL Ammonia 75 H (11-32) mcmol/L Carcinoembryonic Ag 8.3 H (0.2-5.0) ng/mL 03/01/18 Range/Units 15:57 PT 13.1 H (9.8-11.6) sec Sodium (136-145) meq/L BUN (7-18) mg/dL Estimated GFR (>89) mL/min Calcium (8.5-10.1) mg/dL Ammonia (11-32) mcmol/L Carcinoembryonic Ag (0.2-5.0) ng/mL BMP 03/01/18 07:30 Sodium 135 L Potassium 3.9 Chloride 103 Carbon Dioxide 23.8 BUN 22 H Creatinine 0.91 Calcium 8.0 L <Gurinder Bazzi L - 03/01/18 17:52> Abnormal lab results 02/28/18 02/28/18 02/28/18 Range/Units 06:59 11:11 17:36 Platelet Estimate Low L (Normal) Platelet Morphology Enlarged H (Normal) Ovalocytes 1+ H (None) PT 13.2 H (9.8-11.6) sec Sodium (136-145) meq/L BUN (7-18) mg/dL Estimated GFR (>89) mL/min Calcium (8.5-10.1) mg/dL Ammonia (11-32) mcmol/L Carcinoembryonic Ag 8.3 H (0.2-5.0) ng/mL 03/01/18 03/01/18 Range/Units 07:30 07:30 Platelet Estimate (Normal) Platelet Morphology (Normal) Ovalocytes (None) PT (9.8-11.6) sec Sodium 135 L (136-145) meq/L BUN 22 H (7-18) mg/dL Estimated GFR 82 L (>89) mL/min Calcium 8.0 L (8.5-10.1) mg/dL Ammonia 75 H (11-32) mcmol/L Carcinoembryonic Ag (0.2-5.0) ng/mL BMP 03/01/18 07:30 Sodium 135 L Potassium 3.9 Chloride 103 Carbon Dioxide 23.8 BUN 22 H Creatinine 0.91 Calcium 8.0 L <Petrona Moody - 03/01/18 09:50> - Imaging Impressions Liver Ultrasound 02/28/18 00:00 CONCLUSION: 1. Cirrhosis. 2. Moderate amount of ascites. 3. Diffuse nonspecific gallbladder wall thickening. Gallstones are demonstrated on recent CT. <Gurinder Bazzi - 03/01/18 17:52> Impressions Liver Ultrasound 02/28/18 00:00 CONCLUSION: 1. Cirrhosis. 2. Moderate amount of ascites. 3. Diffuse nonspecific gallbladder wall thickening. Gallstones are demonstrated on recent CT. <Petrona Moody - 03/01/18 09:50> Physical Exam Vital signs: Vital Signs 02/28/18 18:34 02/28/18 20:00 03/01/18 00:00 Temperature 97.7 F 97.7 F 97.3 F L Pulse Rate 67 67 62 Respiratory Rate 15 19 17 Blood Pressure 105/59 L 105/57 L 110/69 Pulse Oximetry 99 98 95 03/01/18 04:00 03/01/18 04:01 03/01/18 07:05 Temperature 97.9 F 97.8 F Pulse Rate 62 64 Respiratory Rate 18 18 18 Blood Pressure 116/67 128/76 Pulse Oximetry 99 98 03/01/18 09:51 03/01/18 11:15 03/01/18 16:20 Temperature 97.8 F 98.5 F Pulse Rate 56 L 58 L Respiratory Rate 18 18 Blood Pressure 123/72 106/65 Pulse Oximetry 97 99 98 Intake & Output 02/28/18 03/01/18 03/01/18 18:59 06:59 18:59 Intake Total 50 / 50 50 / 50 50 / 50 Output Total 250 / 250 1700 / 1700 150 / 150 Balance -200 / -200 -1650 / -1650 -100 / -100 Weight 60.5 kg Intake: IV 50 / 50 50 / 50 50 / 50 Flexbumin 25% Inj 50 ML @ 60 50 / 50 50 / 50 50 / 50 mls/hr IV.SIG Q12H [facility] Rx#: [id number] Output: Urine 250 / 250 1700 / 1700 150 / 150 Other: # Voids 1 2 Date of Last Bowel Movement 03/01/18 # Bowel Movements 1 <Gurinder Bazzi L - 03/01/18 17:52> Vital Signs 02/28/18 12:00 02/28/18 18:34 02/28/18 20:00 Temperature 97.9 F 97.7 F 97.7 F Pulse Rate 65 67 67 Respiratory Rate 15 19 Blood Pressure 123/69 105/59 L 105/57 L Pulse Oximetry 97 99 98 03/01/18 00:00 03/01/18 04:00 03/01/18 04:01 Temperature 97.3 F L 97.9 F Pulse Rate 62 62 Respiratory Rate 17 18 18 Blood Pressure 110/69 116/67 Pulse Oximetry 95 99 03/01/18 07:05 Temperature 97.8 F Pulse Rate 64 Respiratory Rate 18 Blood Pressure 128/76 Pulse Oximetry 98 Intake & Output 02/28/18 03/01/18 03/01/18 18:59 06:59 18:59 Intake Total 50 / 50 50 / 50 Output Total 250 / 250 1700 / 1700 150 / 150 Balance -200 / -200 -1650 / -1650 -150 / -150 Weight 60.5 kg Intake: IV 50 / 50 50 / 50 Flexbumin 25% Inj 50 ML @ 60 50 / 50 50 / 50 mls/hr IV.SIG Q12H [facility] Rx#: [id number] Output: Urine 250 / 250 1700 / 1700 150 / 150 Other: # Voids 1 Date of Last Bowel Movement 03/01/18 # Bowel Movements 1 <AnitastellaPetrona Longoria - 03/01/18 09:50> Narrative: GENERAL: Thin cachectic appearing white gentleman that is tired but arousable. Laying quietly in bed. SKIN: Warm and dry. No rash. Minor spider angiomata over abdomen and chest. CARDIOVASCULAR: Regular rate and rhythm without obvious murmurs, gallops, or rubs. RESPIRATORY: Breath sounds equal bilaterally. No accessory muscle use. CTAB. GASTROINTESTINAL: Abdomen distended with positive fluid wave. Bowel sounds present. No tenderness to palpation. MUSCULOSKELETAL: No cyanosis or edema. normal ROM NEURO/PSYCH: Alert and oriented x3. No focal deficits. <AnitastellaPetrona Longoria - 03/01/18 09:51> Assessment and Plan - Assessment (1) Weakness Code(s): R53.1 - Weakness Status: Acute (2) Acute hepatic encephalopathy Code(s): K72.00 - Acute and subacute hepatic failure without coma Status: Acute (3) Cirrhosis of liver Code(s): K74.60 - Unspecified cirrhosis of liver Status: Acute (4) Ascites Code(s): R18.8 - Other ascites Status: Acute (5) Hepatitis C antibody test positive Code(s): R76.8 - Other specified abnormal immunological findings in serum Status: Acute (6) History of esophageal varices with bleeding Code(s): Z87.19 - Personal history of other diseases of the digestive system Status: Acute <Gurinder Bazzi - 03/01/18 17:52> (1) Weakness Code(s): R53.1 - Weakness Status: Acute Plan: Likely secondary to encephalopathy versus chronic liver failure -Con't regular diet (w/sodium restriction) plus Ensure supplementation -Dietary consulted -PT consulted, recommend rehab or home health care (2) Acute hepatic encephalopathy Code(s): K72.00 - Acute and subacute hepatic failure without coma Status: Acute Plan: Hepatic encephalopathy: -Ammonia decreased to 75 from 133 yesterday. -Continue on Xifaxan 400 mg every 8 and lactulose 30 mL 4 times daily. -Increase spironolactone 400 mg daily.Continue Lasix 40 mg TID. -CEA high at 8.3. Consider breast, pancreas, thyroid or lung malignancy. -Will hold off malignancy workup as patient may want hospice care. Will await palliative care recommendations. -Patient wishes to speak to hospice about goals of care. Poor prognosis per GI notes. -Palliative care consulted. Appreciate recommendations. (3) Cirrhosis of liver Code(s): K74.60 - Unspecified cirrhosis of liver Status: Acute Plan: Diagnosed with cirrhosis of the liver over 20 years ago. Received no medical treatment until recently. Also found to be hepatitis C positive. -Child's Saba score of 11 class C indicating life expectancy of 1-3 years -Meld-sodium score of 16 indicating less than 2% 90-day mortality -SAAG from paracentisis on 02/18 1.9, indicated portal HTN -Endoscopy/colonoscopy on 02/20 significant for rectal varices as well as signs of portal hypertension gastropathy -AFP within normal limits at 7.8 Plan: -Outpatient f/u necessary, consider liver transplant (4) Ascites Code(s): R18.8 - Other ascites Status: Acute Plan: 2/ to portal HTN. Status post paracentesis on 02/18. -Abdomen reaccumulating ascitic fluid, will likely need retap after 2 weeks or less, needs regular follow-up. Plan: -Continue nadolol 20 mg daily -Continue furosemide 40 mg 3 times daily -Increase Spironolactone to 400 mg p.o. daily -Consider paracentesis if ascites rapidly worsens (5) Hepatitis C antibody test positive Code(s): R76.8 - Other specified abnormal immunological findings in serum Status: Acute Plan: Hepatitis C IgG antibody reactive -Hepatitis C RNA viral load 63,200 -Hepatitis C genotype 1B -Follow up with GI outpatient (6) History of esophageal varices with bleeding Code(s): Z87.19 - Personal history of other diseases of the digestive system Status: Acute Plan: Patient has history of esophageal varices with bleeding 20 years ago when initially diagnosed with cirrhosis. H&H stable. - Pursue further testing based on any changes on clinical exam Fluids: Not indicated at this time Electrolytes: Replete as needed Nutrition: Regular diet with sodium restriction 2 g daily as well as fluid restriction 1500 mL daily and Ensure supplement with every meal DVT prophylaxis: Enoxaparin 40 mg subcu <Petrona Moody - 03/01/18 16:41> - Attending Attestation The exam, history, and the medical decision-making described in the above note were completed with the assistance of the resident physician. I reviewed and agree with the findings presented. I attest that I had a [id number] encounter with the patient on the same day, and personally performed and documented my assessment and findings in the medical record. I evaluated patient independently this afternoon. He is awake and alert, answering my questions appropriately. He is alert and oriented X3. He is complaining of fullness in his abdomen. Otherwise reports no pain. Feels tired and weak. Appears cachectic by my exam. Has significant ascites but abdomen is non-firm. Has active bowel sounds. No significant pain with palpation of the abdomen. Regular pulses, RRR, CTAB. No lower extremity edema. Had long discussion with the family. They had discussion with palliative care. They had several questions. Their primary concern is about whether to pursue an aggressive or more comfort-oriented course. They had specific questions about liver transplant, discussed with them a lot would need to be overcome for that to occur, as it is a major operation, requires significant prescreening, and often requires a wait. They also had a lot of questions about comfort care, and are especially interested in a Pleur-X catheter and whether that would increase his comfort due to the refractory ascites. Discussed risks and benefits involved in a Pleur-X catheter. They are considering hospice, but would like more time to think about the options. They also had questions about tube feedings as he is not eating. Discussed that tube feedings are rather aggressive in nature, cause discomfort, and would need to be assessed it is in line with the patient's goals. They also brought up a concern to me that he has a history of suicidal ideation and behavior and depression or bipolar disorder. They are concerned that he is refusing to eat as a kind of suicidal attempt. I expressed that I do not believe that is the case based on my assessment, that much of his symptomatology is secondary to his liver disease, including the hepatic encephalopathy. However, for the sake of closure, they are requesting an evaluation by a psychiatrist to be sure he is of sound mind and is not suicidal. I believe that this is reasonable if it will provide more closure to the family going forward. Will continue discussions with the patient, family, palliative care, hospice, and gastroenterology about the best approach going forward. <Gurinder Bazzi - 03/01/18 17:52>
[2018-03-01] MEDS: Senna/Docusate Sodium 8.6/50 MG Tablet PO SCH ×2 (10:01→20:26)
[2018-03-01] MEDS: Albumin Human 25% Inj 50 ML IV.SIG SCH ×2 (10:01→22:39)
[2018-03-01] MEDS: Nadolol 20 MG Tablet PO SCH (10:01)
[2018-03-01] MEDS: Furosemide 40 MG Tablet PO SCH ×3 (10:01→17:03)
--- NOTE | 2018-03-01 10:11 | P.CONPAL ---
Consult Service: Palliative Care Requesting Physician: Sushila Arzate Reason for Consult: a. To assist with evaluation and management of symptoms including: pain, nausea , anxiety/depression b. To assist medical decision maker(s) with: better understanding of current medical conditions; weighing benefits/burdens of medical treatment options; making medical treatment decisions. Primary Care Provider: PROVIDER NON STAFF History of Present Illness History of Present Illness: This is a 72-year-old male with remote hx alcohol abuse, esophageal variceal bleeding, and liver cirrhosis diagnosed 20 years ago and recently discharged who presented again 02/26/18 with intermittent confusion. Pt was admitted to 02/23/17 for 1 - 2 month hx abd pain, and distention, SOB. He appeared jaundiced. He was found to have hepatitis C, cirrhosis, ascites. At this time he also reported a 15 pound unintentional weight loss, weakness, falls, early satiety, and muscle atrophy in the chest and extremities. He had 2 paracentesis during that admission. HE also had endoscopic w/u revealing rectal varices, portal hypertension gastropathy. He returned 02/26/18 for intermittent confusion and agitation. Around 1/2 he slept most of the day and 1 /3 he became confused and anxious. He was unable to operate the remote control and was unable to take care of himself in the bathroom. His found him wandering around the house. Initial labs this admission significant for: PLT 141, NH 83, tbil 2.7, albumin 2.0. EEG indicated encephalopathy. NH increased to 133 and then dropped with initiation of lactulose and rifaximin by GI, who also gave him a poor prognosis. His confusion fluctuates and his feels he has lucid moments, including one yesterday when he told her "I don't want to fight this anymore." Pt seen in room, family at bedside. Pt admits nausea that is constant, diffuse abdominal pain that is constant, lack of desire to eat, and fatigue. He tells me he is trying not to vomit. He is quite lethargic and unable to offer further details. Function/Cognitive Trajectory: Was living at home with , independent with ADLs. Recent trajectory of decline with worsening symptoms 2/2 decompensating liver disease. In the last week he became confused intermittently, unable to toilet himself or find his way around the house. He has been sleeping more. Review of Systems limited ROS 2/2 pt lethargy, info obtained from chart review & family discussion Constitutional: Reports daytime sleepiness, Reports fatigue, Reports weakness, Reports weight loss Eyes: Denies change in vision, Denies loss of vision Ears, Nose, Mouth, and Throat: Denies abnormal hearing, Denies neck pain Cardiovascular: Denies chest pain Respiratory: Reports shortness of breath Gastrointestinal: Reports abdominal pain, Reports constipation, Reports feeling full early, Reports nausea Musculoskeletal: Reports body aches, Reports decreased muscle mass Skin/Breast: Reports yellowing of the skin Neurologic: Reports behavioral changes, Reports lack of coordination Psychiatric: Reports anxiety, Reports confusion, Reports depression Hematologic/Lymphatic: Denies enlarged lymph nodes Allergic/Immunologic: Denies hives PMFSH - History History Provided By: Patient, Family Member, Medical Record - Medical History Medical History: Medical History (Last Reviewed 02/26/18 @ 13:53 by HORACE Green) Advanced hepatic cirrhosis CHF (congestive heart failure) HTN (hypertension) - Family History Family History: Family History (Last Updated 03/01/18 @ 09:37 by ELIZABET Carmona) Other No pertinent family history - Tobacco History Second Hand Smoke Exposure: No Tobacco Use In Past 30 Days: No Smoking Status: Former smoker Tobacco Type: Cigarettes - Alcohol History How Often Do You Have a Drink Containing Alcohol: Never (heavy drinker 20 y ago) - Substance Use History Substance History: Active Abuse (occasionally smokes marijuana) - Substance Use Type Alcohol Status: Sustained Remission - Travel History Recent Travel in the [place] Within the Last 8 Weeks: No Recent Travel Out of the Country Within the Last 8 Weeks: No - Immunization History Tetanus Immunization: Unsure Medications and Allergies Active Medications: Active Medications Al Hydroxide/Mg Hydroxide (Milk Of Magnesia Liq) 30 ml PO Q12H PRN PRN Reason: Mild Constipation Bisacodyl (Dulcolax Supp) 10 mg RECTAL DAILY PRN PRN Reason: SEVERE CONSITIPATION Furosemide (Lasix) 40 mg PO TID [facility] Last Admin: 02/28/18 18:36 Dose: 40 mg Albumin Human (Flexbumin 25% Inj) 50 mls @ 60 mls/hr IV.SIG Q12H [place] Stop: 03/02/18 06:00 Last Infusion: 02/28/18 23:53 Dose: Infused Lactulose (Lactulose Liq) 30 ml PO DAILY PRN PRN Reason: SEVERE CONSITIPATION Last Admin: 02/28/18 16:32 Dose: 30 ml Lactulose (Lactulose Liq) 30 ml PO QID [facility] Last Admin: 02/28/18 23:04 Dose: 30 ml Nadolol (Corgard) 20 mg PO DAILY [facility] Last Admin: 02/28/18 11:46 Dose: Not Given Ondansetron HCl (Zofran Inj) 4 mg IV.PUSH Q6H PRN PRN Reason: NAUSEA OR VOMITING Last Admin: 02/27/18 09:32 Dose: 4 mg Rifaximin (Xifaxan) 400 mg PO Q8HR [facility] Last Admin: 03/01/18 05:42 Dose: 400 mg Senna/Docusate Sodium (Jessica-Colace) 1 tab PO BID [facility] Last Admin: 02/28/18 23:04 Dose: 1 tab Sennosides (Senokot) 17.2 mg PO Q12H PRN PRN Reason: Moderate Constipation Sodium Chloride (Ns Flush) 2 ml IV.FLUSH BID [facility] Last Admin: 02/28/18 23:34 Dose: 2 ml Sodium Chloride (Ns Flush) 2 ml IV.FLUSH PRN PRN PRN Reason: FLUSH AFTER USING IV ACCESS Spironolactone (Aldactone) 300 mg PO DAILY [facility] Last Admin: 02/28/18 11:46 Dose: 300 mg Allergies Allergy/AdvReac Type Severity Reaction Status Date / Time No Known Allergies Allergy Verified 02/26/18 11:01 Advance Directives Living Will: No Healthcare Surrogate: No Power of Solutions Consultant: No Physical Exam Vital Signs: Vital Signs - 24 hr 02/28/18 12:00 02/28/18 18:34 02/28/18 20:00 Temperature 97.9 F 97.7 F 97.7 F Pulse Rate 65 67 67 Respiratory Rate 15 19 Blood Pressure 123/69 105/59 L 105/57 L Pulse Oximetry 97 99 98 03/01/18 00:00 03/01/18 04:00 03/01/18 04:01 Temperature 97.3 F L 97.9 F Pulse Rate 62 62 Respiratory Rate 17 18 18 Blood Pressure 110/69 116/67 Pulse Oximetry 95 99 03/01/18 07:05 Temperature 97.8 F Pulse Rate 64 Respiratory Rate 18 Blood Pressure 128/76 Pulse Oximetry 98 I&O: Intake & Output 02/27/18 02/28/18 03/01/18 03/02/18 06:59 06:59 06:59 06:59 Intake Total 1240 / 1240 240 / 240 100 / 100 Output Total 1100 / 1100 1900 / 1900 1950 / 1950 150 / 150 Balance 140 / 140 -1660 / -1660 -1850 / -1850 -150 / -150 Weight 61.8 kg 62 kg 60.5 kg Physical Exam: CONSTITUTIONAL/GENERAL: sleepy cachectic male TUBES/LINES/DRAINS: PIV SKIN: bronze complexion. no rashes, or lesions. No wounds seen anteriorly. Skin temperature appropriate. Not diaphoretic. HEAD: Atraumatic. Normocephalic. sunken eyes EYES: Pupils equal and round and reactive. Extraocular motions intact. No injection or drainage. Fundi not examined. ENT: Hearing grossly normal. Nose without bleeding or purulent drainage. NECK: Trachea midline. Supple, nontender. No palpable thyroid enlargement or nodularity. CARDIOVASCULAR: RRR without murmurs, gallops, or rubs. No JVD. Peripheral pulses symmetric. RESPIRATORY/CHEST: Symmetric, unlabored respirations. Clear to auscultation. Breath sounds equal bilaterally. No wheezes, rales, or rhonchi. GASTROINTESTINAL: Abdomen semifirm, diffusely TTP, distended. N No guarding. Bowel sounds present. GENITOURINARY: Without palpable bladder distension. MUSCULOSKELETAL: Extremities thin without clubbing, cyanosis, or edema. + muscle wasting. No joint tenderness or effusion noted. No calf tenderness. No mottling or clubbing. NEUROLOGICAL: lethargic. answers simple questions. cooperative. weak. PSYCHIATRIC: No obvious anxiety/depression. no apparent hallucinations or other psychotic thought process. Diagnostic Tests Laboratory: Laboratory Results - last 72 hr 02/26/18 02/26/18 02/26/18 11:30 11:30 11:30 WBC 9.5 RBC 3.77 L Hgb 13.5 Hct 38.2 L MCV 101.4 H MCH 35.8 H MCHC 35.3 RDW 15.5 Plt Count 146 L D MPV 9.4 Prelim Diff (Auto) Neut % (Auto) 61.3 Lymph % (Auto) 13.3 Stanton % (Auto) 22.1 H Eos % (Auto) 2.7 Baso % (Auto) 0.6 Neut # (Auto) 5.8 Lymph # (Auto) 1.3 Stanton # (Auto) 2.1 H Eos # (Auto) 0.3 Baso # (Auto) 0.1 WBC Differential . Diff Scan Differential Comment Auto diff final Platelet Estimate Platelet Morphology Ovalocytes PT INR Puncture Site Patient Temperature VBG pH VBG pCO2 VBG pO2 VBG HCO3 VBG O2 Saturation VBG O2 Content VBG Base Excess VBG Carboxyhemoglobin VBG Methemoglobin Hemoglobin Inspired O2 Critical Value Sodium 135 L Potassium 4.0 Chloride 102 Carbon Dioxide 28.4 Anion Gap 5 BUN 17 Creatinine 0.94 Estimated GFR 79 L Random Glucose 81 Lactic Acid 1.7 Calcium 7.8 L Magnesium 2.3 Total Bilirubin 2.5 H AST 28 ALT 20 Alkaline Phosphatase 78 Ammonia Troponin I 0.03 Total Protein 6.5 D Albumin 2.1 L Tumor Marker AFP Carcinoembryonic Ag CA 19-9 Antigen Urine Color Urine Clarity Urine pH Ur Specific Duncan Urine Protein Urine Glucose (UA) Urine Ketones Urine Occult Blood Urine Nitrate Urine Bilirubin Urine Urobilinogen Ur Leukocyte Esterase Urine RBC Urine WBC Ur Squamous Epith Cells Calcium Oxalate Crystal Hyaline Casts Urine Mucus Micro UA Comment Ur Microscopic Review Urine Culture Comments Urine Opiates Screen Ur Barbiturates Screen Ur Amphetamines Screen U Benzodiazepines Scrn Urine Cocaine Screen U Cannabinoids Screen Serum Alcohol Less than 3 02/26/18 02/26/18 02/26/18 11:30 12:53 12:53 WBC RBC Hgb Hct MCV MCH MCHC RDW Plt Count MPV Prelim Diff (Auto) Neut % (Auto) Lymph % (Auto) Stanton % (Auto) Eos % (Auto) Baso % (Auto) Neut # (Auto) Lymph # (Auto) Stanton # (Auto) Eos # (Auto) Baso # (Auto) WBC Differential Diff Scan Differential Comment Platelet Estimate Platelet Morphology Ovalocytes PT INR Puncture Site Patient Temperature VBG pH VBG pCO2 VBG pO2 VBG HCO3 VBG O2 Saturation VBG O2 Content VBG Base Excess VBG Carboxyhemoglobin VBG Methemoglobin Hemoglobin Inspired O2 Critical Value Sodium Potassium Chloride Carbon Dioxide Anion Gap BUN Creatinine Estimated GFR Random Glucose Lactic Acid Calcium Magnesium Total Bilirubin AST ALT Alkaline Phosphatase Ammonia 44 H Troponin I Total Protein Albumin Tumor Marker AFP Carcinoembryonic Ag CA 19-9 Antigen Urine Color Consuelo Urine Clarity Hazy H Urine pH 6.0 Ur Specific Duncan 1.015 Urine Protein Negative Urine Glucose (UA) Negative Urine Ketones Negative Urine Occult Blood Moderate H Urine Nitrate Negative Urine Bilirubin Negative Urine Urobilinogen 1.0 Ur Leukocyte Esterase Negative Urine RBC 61 H Urine WBC 7 H Ur Squamous Epith Cells <1 Calcium Oxalate Crystal Rare H Hyaline Casts 4 Urine Mucus Few H Micro UA Comment Culture not ind Ur Microscopic Review Not Reportable Urine Culture Comments Culture not ind Urine Opiates Screen Neg Ur Barbiturates Screen Neg Ur Amphetamines Screen Neg U Benzodiazepines Scrn Neg Urine Cocaine Screen Neg U Cannabinoids Screen Neg Serum Alcohol 02/26/18 02/27/18 02/27/18 15:12 06:42 06:42 WBC 8.7 RBC 3.82 L Hgb 13.5 Hct 38.7 L MCV 101.3 H MCH 35.4 H MCHC 35.0 RDW 15.1 Plt Count 141 L MPV 9.9 Prelim Diff (Auto) Neut % (Auto) 65.5 Lymph % (Auto) 12.0 Stanton % (Auto) 19.0 H Eos % (Auto) 2.6 Baso % (Auto) 0.9 Neut # (Auto) 5.7 Lymph # (Auto) 1.0 Stanton # (Auto) 1.6 H Eos # (Auto) 0.2 Baso # (Auto) 0.1 WBC Differential . Diff Scan Differential Comment Auto diff final Platelet Estimate Platelet Morphology Ovalocytes PT INR Puncture Site Peripheral line Patient Temperature 98.6 VBG pH 7.43 H VBG pCO2 40 L VBG pO2 27 L* VBG HCO3 26 VBG O2 Saturation 41 L VBG O2 Content 7.5 L VBG Base Excess 2.3 H VBG Carboxyhemoglobin 1.3 VBG Methemoglobin 0.5 Hemoglobin 13.1 Inspired O2 21 Critical Value Yes Sodium 136 Potassium 4.3 Chloride 106 Carbon Dioxide 22.7 Anion Gap 7 BUN 18 Creatinine 0.79 Estimated GFR Greater than 89 Random Glucose 91 Lactic Acid Calcium 7.9 L Magnesium Total Bilirubin 2.7 H AST 27 ALT 21 Alkaline Phosphatase 77 Ammonia Troponin I Total Protein 6.2 L Albumin 2.0 L Tumor Marker AFP Carcinoembryonic Ag CA 19-9 Antigen Urine Color Urine Clarity Urine pH Ur Specific Duncan Urine Protein Urine Glucose (UA) Urine Ketones Urine Occult Blood Urine Nitrate Urine Bilirubin Urine Urobilinogen Ur Leukocyte Esterase Urine RBC Urine WBC Ur Squamous Epith Cells Calcium Oxalate Crystal Hyaline Casts Urine Mucus Micro UA Comment Ur Microscopic Review Urine Culture Comments Urine Opiates Screen Ur Barbiturates Screen Ur Amphetamines Screen U Benzodiazepines Scrn Urine Cocaine Screen U Cannabinoids Screen Serum Alcohol 02/27/18 02/28/18 02/28/18 06:42 06:59 06:59 WBC 8.1 RBC 3.60 L Hgb 12.9 L Hct 35.7 L MCV 99.1 MCH 35.9 H MCHC 36.2 H RDW 15.4 Plt Count 129 L MPV 9.5 Prelim Diff (Auto) Slide review pending Neut % (Auto) 66.6 Lymph % (Auto) 13.2 Stanton % (Auto) 17.6 H Eos % (Auto) 2.1 Baso % (Auto) 0.5 Neut # (Auto) 5.4 Lymph # (Auto) 1.1 Stanton # (Auto) 1.4 H Eos # (Auto) 0.2 Baso # (Auto) 0.0 WBC Differential . Diff Scan Auto diff confirmed Differential Comment . Platelet Estimate Low L Platelet Morphology Enlarged H Ovalocytes 1+ H PT INR Puncture Site Patient Temperature VBG pH VBG pCO2 VBG pO2 VBG HCO3 VBG O2 Saturation VBG O2 Content VBG Base Excess VBG Carboxyhemoglobin VBG Methemoglobin Hemoglobin Inspired O2 Critical Value Sodium 134 L Potassium 4.2 Chloride 104 Carbon Dioxide 24.0 Anion Gap 6 BUN 20 H Creatinine 0.83 Estimated GFR Greater than 89 Random Glucose 86 Lactic Acid Calcium 7.7 L Magnesium Total Bilirubin AST ALT Alkaline Phosphatase Ammonia 83 H Troponin I Total Protein Albumin Tumor Marker AFP Carcinoembryonic Ag CA 19-9 Antigen Urine Color Urine Clarity Urine pH Ur Specific Duncan Urine Protein Urine Glucose (UA) Urine Ketones Urine Occult Blood Urine Nitrate Urine Bilirubin Urine Urobilinogen Ur Leukocyte Esterase Urine RBC Urine WBC Ur Squamous Epith Cells Calcium Oxalate Crystal Hyaline Casts Urine Mucus Micro UA Comment Ur Microscopic Review Urine Culture Comments Urine Opiates Screen Ur Barbiturates Screen Ur Amphetamines Screen U Benzodiazepines Scrn Urine Cocaine Screen U Cannabinoids Screen Serum Alcohol 02/28/18 02/28/18 02/28/18 06:59 11:11 17:36 WBC RBC Hgb Hct MCV MCH MCHC RDW Plt Count MPV Prelim Diff (Auto) Neut % (Auto) Lymph % (Auto) Stanton % (Auto) Eos % (Auto) Baso % (Auto) Neut # (Auto) Lymph # (Auto) Stanton # (Auto) Eos # (Auto) Baso # (Auto) WBC Differential Diff Scan Differential Comment Platelet Estimate Platelet Morphology Ovalocytes PT 13.2 H INR 1.3 Puncture Site Patient Temperature VBG pH VBG pCO2 VBG pO2 VBG HCO3 VBG O2 Saturation VBG O2 Content VBG Base Excess VBG Carboxyhemoglobin VBG Methemoglobin Hemoglobin Inspired O2 Critical Value Sodium Potassium Chloride Carbon Dioxide Anion Gap BUN Creatinine Estimated GFR Random Glucose Lactic Acid Calcium Magnesium Total Bilirubin AST ALT Alkaline Phosphatase Ammonia 133 H Troponin I Total Protein Albumin Tumor Marker AFP 5.9 Carcinoembryonic Ag 8.3 H CA 19-9 Antigen Urine Color Urine Clarity Urine pH Ur Specific Duncan Urine Protein Urine Glucose (UA) Urine Ketones Urine Occult Blood Urine Nitrate Urine Bilirubin Urine Urobilinogen Ur Leukocyte Esterase Urine RBC Urine WBC Ur Squamous Epith Cells Calcium Oxalate Crystal Hyaline Casts Urine Mucus Micro UA Comment Ur Microscopic Review Urine Culture Comments Urine Opiates Screen Ur Barbiturates Screen Ur Amphetamines Screen U Benzodiazepines Scrn Urine Cocaine Screen U Cannabinoids Screen Serum Alcohol 02/28/18 03/01/18 03/01/18 17:36 07:30 07:30 WBC RBC Hgb Hct MCV MCH MCHC RDW Plt Count MPV Prelim Diff (Auto) Neut % (Auto) Lymph % (Auto) Stanton % (Auto) Eos % (Auto) Baso % (Auto) Neut # (Auto) Lymph # (Auto) Stanton # (Auto) Eos # (Auto) Baso # (Auto) WBC Differential Diff Scan Differential Comment Platelet Estimate Platelet Morphology Ovalocytes PT INR Puncture Site Patient Temperature VBG pH VBG pCO2 VBG pO2 VBG HCO3 VBG O2 Saturation VBG O2 Content VBG Base Excess VBG Carboxyhemoglobin VBG Methemoglobin Hemoglobin Inspired O2 Critical Value Sodium 135 L Potassium 3.9 Chloride 103 Carbon Dioxide 23.8 Anion Gap 8 BUN 22 H Creatinine 0.91 Estimated GFR 82 L Random Glucose 90 Lactic Acid Calcium 8.0 L Magnesium Total Bilirubin AST ALT Alkaline Phosphatase Ammonia 75 H Troponin I Total Protein Albumin Tumor Marker AFP Carcinoembryonic Ag CA 19-9 Antigen 6.5 Urine Color Urine Clarity Urine pH Ur Specific Duncan Urine Protein Urine Glucose (UA) Urine Ketones Urine Occult Blood Urine Nitrate Urine Bilirubin Urine Urobilinogen Ur Leukocyte Esterase Urine RBC Urine WBC Ur Squamous Epith Cells Calcium Oxalate Crystal Hyaline Casts Urine Mucus Micro UA Comment Ur Microscopic Review Urine Culture Comments Urine Opiates Screen Ur Barbiturates Screen Ur Amphetamines Screen U Benzodiazepines Scrn Urine Cocaine Screen U Cannabinoids Screen Serum Alcohol Result Diagrams: 02/28/18 06:59 03/01/18 07:30 Microbiology: Microbiology 02/26/18 11:25 Aerobic Blood Culture - Preliminary Blood - Line No growth in 2 days Anaerobic Blood Culture - Preliminary No growth in 2 days 02/26/18 11:30 Aerobic Blood Culture - Preliminary Blood - Line No growth in 2 days Anaerobic Blood Culture - Preliminary No growth in 2 days Imaging: ITS Impressions Chest X-Ray 02/26/18 11:24 CONCLUSION: Negative for acute process Head CT 02/26/18 11:24 CONCLUSION: 1. Senescent changes without acute intracranial abnormality. . Liver Ultrasound 02/28/18 00:00 CONCLUSION: 1. Cirrhosis. 2. Moderate amount of ascites. 3. Diffuse nonspecific gallbladder wall thickening. Gallstones are demonstrated on recent CT. Patient/Family Conference Present at Family Conference: , 2 kids, daughter in law Family Conference Location: [facility] Issues Discussed: * Palliative care role, purpose, approach * Additional medical, psychosocial, and spiritual history * Patients general health, functional status, and cognitive changes in the months leading up to the current hospitalization * family understanding of the current medical problems - family seems to have good insight * family understanding of prognosis * Patients goals of care as best understood from conversations - pt has said recently "I don't want to fight this anymore" and feels he is going to soon * Current medical treatment options and benefits/burdens of those options - to include work up for liver transplant * code status - feels pt would not want CPR or intubation but wants to wait for next lucid moment and discuss with him * Likely scenarios comparing ongoing aggressive care with a transition to comfort measures only * introduced hospice * decision maker - by proxy if pt incapacitated which he may be * Questions answered to the best of my ability * Palliative care contact information provided Pt expresses comfort oriented goals. and proxy decision maker is inclined to honor his wishes however she needs the support of her children. Children not necessarily opposed to comfort goals and hospice but feel he is depressed and confused and that he shouldn't be the one to make that decision. I told them he could certainly be started on something for depression but most of the medications take weeks to reach therapeutic effect. They all agreed to an informational hospice consult and asked questions about the care center. Assessment and Plan - Disease Oriented Problem List (1) Cirrhosis of liver (2) Acute hepatic encephalopathy (3) History of esophageal varices with bleeding (4) Hepatitis C antibody test positive (5) Ascites - Symptom Scale (1) Anxiety 0-10 Scale: Unable to quantify (2) Pain 0-10 Scale: Unable to quantify (3) Shortness of breath 0-10 Scale: Unable to quantify (4) Weakness 0-10 Scale: Unable to quantify Pertinent Non-Medical Issues: Psychosocial: Pt has been for 40 years. He worked as a grants manager. Has 4 kids, one of whom committed suicide after painkiller addiction. Spiritual: pt not pentecostalism and family declines pastoral support Legal: Patient is not clearly capacitated to make decisions. In the absence of designated healthcare surrogate, proxy medical decision making falls to his . Recommend shared decision making. Ethical issues impacting care: none Important Contacts: Oumar Kathleen [phone] Prognosis: 72 y/o male with remote hx drinking, hep c, and decompensated liver cirrhosis. MELD 13 as of 03/01/18. Child-anthony class C giving 1 year survival chance of 45%, mortality 82 % if he has surgery, and putting him at increased risk for variceal hemorrhage. He has both rectal and esophageal varices. Even if he was eligible liver transplant, he is not likely to survive the surgery. His prognosis is poor and he is likely to experience continued complications. HE is likely hospice appropriate should goals be in line with comfort. Code Status: Full Code Plan: - LEGAL DECISION MAKER -Patient is not clearly capacitated to make decisions. In the absence of designated healthcare surrogate, proxy medical decision making falls to his - CODE STATUS- full code - GOALS - Pt expresses comfort oriented goals. and proxy decision maker is inclined to honor his wishes however she needs the support of her children. Children not necessarily opposed to comfort goals and hospice but feel he is depressed and confused and that he shouldn't be the one to make that decision. I told them he could certainly be started on something for depression but most of the medications take weeks to reach therapeutic effect. They all agreed to an informational hospice consult and asked questions about the care center. - SYMPTOMS - =pain- multifactorial, 2/2 ascites, hx leg pain has apap. recommend d/c apap. recommend dilaudid if pt has worse pain = confusion - has had intermittent confusion. 2/2 encephalopathy. NH 133, has improved since GI initiated lactulose, rifaximin. mgmt per GI = anxiety/depression - multifactorial, 2/2 decline, encephalopathy. family also cites chronic hx intermittent depression and anxiety since initially diagnosed with hep c and cirrhosis. could start low dose sertraline or citalopram. d/w family that therapeutic effects could take weeks = edema/ascites - 2/2 decompensated liver dz. on 300mg spironolactone: 120mg furosemide daily. fluid restriction. mgmt per GI =weakness - 2/2 natural dz process. worsening =constipation - perhaps 2/2 immobility or poss mild ileus? would be expected to have loose stools while on lactulose. has robust bowel regimen. mgmt per GI - pending hospice consult - d/w GI - d/w family medicine - Palliative care will continue to follow during hospital course as condition evolves, to assist patient/decision-maker with understanding of medical conditions, weighing benefits/burdens of treatment options, for clarification of goals of treatment. Additionally will assist with any symptoms of palliative concern Appreciation Thank you for the opportunity to participate in the care of Gurinder Scott. Attestation Attestation: To help prompt me to consider important information that might be impacting today's encounter and assessment, information from prior notes written by myself or my colleagues may have been "brought forward" into today's note. My signature on this note, however, is an attestation that I personally performed the exam, history, and/or decision-making noted today, and, unless otherwise indicated, the interactions with patient, family, and staff as well as the review of records all occurred today. I also attest that the listed assessment and stated plan reflect my best clinical judgment today based on the combination of historical information, prior notes, and today's exam/ interactions. When time spent is documented, it refers only to time spent today by the signer, or if indicated, combined time spent today by collaborating physician/nurse practitioner.
--- NOTE | 2018-03-01 14:10 | P.PNGI ---
Subjective Interval history: Patient resting supine in bed Drowsy but arousable Denies pain but states generalized discomfort States, "I am tired". <VazquezVidhya - Last Filed: 03/01/18 13:57> Physical Exam Vital signs: Vital Signs 02/28/18 18:34 02/28/18 20:00 03/01/18 00:00 Temperature 97.7 F 97.7 F 97.3 F L Pulse Rate 67 67 62 Respiratory Rate 15 19 17 Blood Pressure 105/59 L 105/57 L 110/69 Pulse Oximetry 99 98 95 03/01/18 04:00 03/01/18 04:01 03/01/18 07:05 Temperature 97.9 F 97.8 F Pulse Rate 62 64 Respiratory Rate 18 18 18 Blood Pressure 116/67 128/76 Pulse Oximetry 99 98 03/01/18 09:51 03/01/18 11:15 Temperature 97.8 F Pulse Rate 56 L Respiratory Rate 18 Blood Pressure 123/72 Pulse Oximetry 97 99 Intake & Output 02/28/18 03/01/18 03/01/18 18:59 06:59 18:59 Intake Total 50 / 50 50 / 50 50 / 50 Output Total 250 / 250 1700 / 1700 150 / 150 Balance -200 / -200 -1650 / -1650 -100 / -100 Weight 60.5 kg Intake: IV 50 / 50 50 / 50 50 / 50 Flexbumin 25% Inj 50 ML @ 60 50 / 50 50 / 50 50 / 50 mls/hr IV.SIG Q12H [facility] Rx#: [id number] Output: Urine 250 / 250 1700 / 1700 150 / 150 Other: # Voids 1 Date of Last Bowel Movement 03/01/18 # Bowel Movements 1 - Constitutional chronically ill appearing, cooperative - Routine HEENT Exam Head: Present: normocephalic Eye: Present: conjunctival icterus - Routine Respiratory Exam Present: CTA bilaterally. Absent: accessory muscle use - Routine Cardiovascular Exam Present: RRR, S1, S2 - Routine Abdominal Exam Present: normoactive bowel sounds, organomegaly. Absent: tenderness, distended - Routine Skin Exam Present: dry, warm - Routine Neurological Exam Generalized weakness Drowsy Arouses easily Cooperative <VazquezVidhya - Last Filed: 03/01/18 13:57> Vital signs: Vital Signs 02/28/18 20:00 03/01/18 00:00 03/01/18 04:00 Temperature 97.7 F 97.3 F L 97.9 F Pulse Rate 67 62 62 Respiratory Rate 19 17 18 Blood Pressure 105/57 L 110/69 116/67 Pulse Oximetry 98 95 99 03/01/18 04:01 03/01/18 07:05 03/01/18 09:51 Temperature 97.8 F Pulse Rate 64 Respiratory Rate 18 18 Blood Pressure 128/76 Pulse Oximetry 98 97 03/01/18 11:15 03/01/18 16:20 Temperature 97.8 F 98.5 F Pulse Rate 56 L 58 L Respiratory Rate 18 18 Blood Pressure 123/72 106/65 Pulse Oximetry 99 98 Intake & Output 02/28/18 03/01/18 03/01/18 18:59 06:59 18:59 Intake Total 50 / 50 50 / 50 50 / 50 Output Total 250 / 250 1700 / 1700 250 / 250 Balance -200 / -200 -1650 / -1650 -200 / -200 Weight 60.5 kg Intake: IV 50 / 50 50 / 50 50 / 50 Flexbumin 25% Inj 50 ML @ 60 50 / 50 50 / 50 50 / 50 mls/hr IV.SIG Q12H [facility] Rx#: [id number] Output: Urine 250 / 250 1700 / 1700 250 / 250 Other: # Voids 1 2 Date of Last Bowel Movement 03/01/18 # Bowel Movements 1 <Sheron Mccray A - Last Filed: 03/01/18 18:45> Results - Labs CBC & Chem 7: 02/28/18 06:59 03/01/18 07:30 Laboratory Results - last 24 hr 02/28/18 02/28/18 03/01/18 17:36 17:36 07:30 Sodium 135 L Potassium 3.9 Chloride 103 Carbon Dioxide 23.8 Anion Gap 8 BUN 22 H Creatinine 0.91 Estimated GFR 82 L Random Glucose 90 Calcium 8.0 L Ammonia Tumor Marker AFP 5.9 Carcinoembryonic Ag 8.3 H CA 19-9 Antigen 6.5 03/01/18 07:30 Sodium Potassium Chloride Carbon Dioxide Anion Gap BUN Creatinine Estimated GFR Random Glucose Calcium Ammonia 75 H Tumor Marker AFP Carcinoembryonic Ag CA 19-9 Antigen Microbiology 02/26/18 11:25 Blood - Line Aerobic Blood Culture - Preliminary No growth in 3 days 02/26/18 11:25 Blood - Line Anaerobic Blood Culture - Preliminary No growth in 3 days 02/26/18 11:30 Blood - Line Aerobic Blood Culture - Preliminary No growth in 3 days 02/26/18 11:30 Blood - Line Anaerobic Blood Culture - Preliminary No growth in 3 days - Imaging Impressions Liver Ultrasound 02/28/18 00:00 CONCLUSION: 1. Cirrhosis. 2. Moderate amount of ascites. 3. Diffuse nonspecific gallbladder wall thickening. Gallstones are demonstrated on recent CT. <Vidhya Shukla - Last Filed: 03/01/18 13:57> - Labs CBC & Chem 7: 02/28/18 06:59 03/01/18 07:30 Laboratory Results - last 24 hr 02/28/18 02/28/18 03/01/18 17:36 17:36 07:30 PT INR Sodium 135 L Potassium 3.9 Chloride 103 Carbon Dioxide 23.8 Anion Gap 8 BUN 22 H Creatinine 0.91 Estimated GFR 82 L Random Glucose 90 Calcium 8.0 L Ammonia Tumor Marker AFP 5.9 Carcinoembryonic Ag 8.3 H CA 19-9 Antigen 6.5 03/01/18 03/01/18 07:30 15:57 PT 13.1 H INR 1.3 Sodium Potassium Chloride Carbon Dioxide Anion Gap BUN Creatinine Estimated GFR Random Glucose Calcium Ammonia 75 H Tumor Marker AFP Carcinoembryonic Ag CA 19-9 Antigen Microbiology 02/26/18 11:25 Blood - Line Aerobic Blood Culture - Preliminary No growth in 3 days 02/26/18 11:25 Blood - Line Anaerobic Blood Culture - Preliminary No growth in 3 days 02/26/18 11:30 Blood - Line Aerobic Blood Culture - Preliminary No growth in 3 days 02/26/18 11:30 Blood - Line Anaerobic Blood Culture - Preliminary No growth in 3 days - Imaging Impressions Liver Ultrasound 02/28/18 00:00 CONCLUSION: 1. Cirrhosis. 2. Moderate amount of ascites. 3. Diffuse nonspecific gallbladder wall thickening. Gallstones are demonstrated on recent CT. <Sheron Mccray - Last Filed: 03/01/18 18:45> Assessment and Plan - Plan - Liver cirrhosis multifactorial secondary to history of ETOH abuse and Hepatitis C (tx naive)- Diagnosed 20 years ago, quit ETOH at time of diagnosis. Recent admission Liver work up during last admission AFP-7.8 Hepatitis C antibody (+), genotype 1b quant 63,200 TRISH, ASMA, AMA negative, normal A1A, normal ceruloplasmin CT abd/pelvis WO IV contrast (02/18) Large volume ascites throughout the abdomen and pelvis. Small irregular liver characteristic of cirrhosis. Gallstones in the gallbladder. No biliary tract obstruction. A few small stones are seen along the base of the urinary bladder on the right side. Left inguinal hernia containing ascites. - AMS- likely secondary to hepatic encephalopathy. Ammonia today is 133, pt not on meds at home for the ammonia Started on lactulose QID and Xifaxan - Thrombocytopenia, and hypoalbuminemia secondary to above - Ascites secondary to portal hypertension Paracentesis (02/18/18) 7,000 mL removed S/P repeat paracentesis (02/22/18) 7800 mL removed. On Spironolactone 200 daily and Furosemide 40 daily at home here in the hospital started on Lasix 40 TID and Aldactone 300 daily - Esophageal and rectal varices S/P EGD and colonoscopy 02/20/18 EGD --> Medium size varices, no stigmata of active or recent bleeding. Portal hypertensive gastropathy was found in the entire examined stomach. Normal duodenal mucosa in the 2nd part of the duodenum. Colonoscopy --> large rectal varices no stigmata of active or recent bleeding. Small angiodysplastic lesion, the cecum, and in the ascending colon. Pt on Nadolol 20 daily Repeat EGD and colonoscopy in 6 months. 03/01/2018 Hepatic encephalopathy Ammonia level 75( trending down). As per patient's daughter, patient refused afternoon dose of lactulose. Lactulose oral 4 times daily. Discussed importance and benefits of lactulose and diuretics, patient verbalized understanding but states, "I am tired, and I do not feel any different." Ascites Abdomen distended non-firm. Spironolactone 300 p.o. daily and furosemide 40 mg p.o. 3 times daily Esophageal and rectal varices post EGD and colonoscopy on 02/20/2018 No reported or noted active bleeding. Nadolol 20 mg p.o. daily 02/28/2018 ultrasound of liver:. Cirrhosis. Moderate amount of ascites. Diffuse nonspecific gallbladder wall thickening. Gallstones are demonstrated on recent CT. Plan Diet as tolerated-sodium restriction, Ensure supplementation Antiemetics as per attending as needed Continue to monitor labs Monitor ammonia, hemoglobin hematocrit and liver function Palliative care following Continue nadolol, diuretics, lactulose and Xifaxan Supportive care Emotional support-continued assessment and acknowledgment of patient and family goals This patient has been seen by myself and Dr. Mccray and this note is written on his behalf - Attending Attestation Dr. Mccray <Vidhya Shukla - Last Filed: 03/01/18 13:57> - Attending Attestation Seen and examined, plan as above. Will follow up with you periodically . <Sheron Mccray - Last Filed: 03/01/18 18:45>
[2018-03-01 16:34] LABS: INR 1.3 Ratio; Prothrombin Time 13.1 sec (9.8-11.6)
[2018-03-02 08:19] LABS: INR 1.3 Ratio; Prothrombin Time 13.3 sec (9.8-11.6)
[2018-03-02 08:27] LABS: Alanine Aminotransferase 21 U/L (12-78); Albumin 2.5 g/dL (3.4-5.0); Anion Gap 6 meq/L (5-15); Aspartate Aminotransferase 32 U/L (15-37); Blood Urea Nitrogen 19 mg/dL (7-18); Calcium 8.2 mg/dL (8.5-10.1); Carbon Dioxide 23.2 meq/L (21.0-32.0); Chloride 103 meq/L (98-107); Glomerular Filtration Rate Greater Than 89 mL/min (>89); Glucose,Random 75 mg/dL (74-106); Potassium 4.4 meq/L (3.5-5.1); Sodium 132 meq/L (136-145)
[2018-03-02 08:33] VITALS: RESP 18
[2018-03-02 08:33] LABS: Alkaline Phosphatase 64 U/L (45-117); Total Protein 6.4 g/dL (6.4-8.2)
--- NOTE | 2018-03-02 09:11 | P.PNFP ---
Subjective Interval history: Patient seen and examined at bedside this morning. States that he still feels tired and confirms abdominal pain. Patient has been refusing rifaximin and lactulose yesterday. When inquired why he is refusing treatment, he states that he believes that the medication is not helping him. He is alert and oriented to person, place, time. He is aware that he is in the hospital for liver failure. He states he is at the point where he thinks that the medicines are not helping his current condition. When inquired about CODE STATUS he states he is unsure about resuscitation but would not like to be intubated. He states that he spoke to his family yesterday and they have considered hospice care moving forward. He understands the importance of having an open discussion with his family moving forward about his medical management. Educated patient on the importance of continuing lactulose and rifaximin to help with his mental status. Patient voiced understanding. He denies any bowel movements yesterday and today. Denies any chest pain, shortness of breath, leg pain. All questions were answered at bedside. <Petrona Moody - 03/02/18 15:09> Results - Labs Result diagrams: 03/02/18 11:10 03/02/18 07:49 <Gurinder Bazzi - 03/02/18 17:34> Abnormal lab results 03/02/18 03/02/18 03/02/18 Range/Units 07:49 07:49 07:49 RBC (4.50-5.90) mil/mm3 Hct (39.0-51.0) % MCV (80.0-100.0) fL MCH (27.0-34.0) pg Plt Count (150-450) th/mm3 [place] % (Auto) (0.0-8.0) % [place] # (Auto) (0.0-0.9) th/mm3 PT 13.3 H (9.8-11.6) sec Sodium 132 L (136-145) meq/L BUN 19 H (7-18) mg/dL Calcium 8.2 L (8.5-10.1) mg/dL Total Bilirubin 3.0 H (0.2-1.0) mg/dL Ammonia 146 H (11-32) mcmol/L Albumin 2.5 L (3.4-5.0) g/dL 03/02/18 Range/Units 11:10 RBC 3.72 L (4.50-5.90) mil/mm3 Hct 37.8 L (39.0-51.0) % MCV 101.4 H (80.0-100.0) fL MCH 35.7 H (27.0-34.0) pg Plt Count 141 L (150-450) th/mm3 [place] % (Auto) 16.3 H (0.0-8.0) % [place] # (Auto) 1.1 H (0.0-0.9) th/mm3 PT (9.8-11.6) sec Sodium (136-145) meq/L BUN (7-18) mg/dL Calcium (8.5-10.1) mg/dL Total Bilirubin (0.2-1.0) mg/dL Ammonia (11-32) mcmol/L Albumin (3.4-5.0) g/dL Short CBC 03/02/18 Range/Units 11:10 WBC 6.9 (4.0-11.0) th/mm3 Hgb 13.3 (13.0-17.0) gm/dL Hct 37.8 L (39.0-51.0) % Plt Count 141 L (150-450) th/mm3 BMP 03/02/18 07:49 Sodium 132 L Potassium 4.4 Chloride 103 Carbon Dioxide 23.2 BUN 19 H Creatinine 0.80 Calcium 8.2 L Liver Function 03/02/18 Range/Units 07:49 Total Bilirubin 3.0 H (0.2-1.0) mg/dL AST 32 (15-37) U/L ALT 21 (12-78) U/L Alkaline Phosphatase 64 (45-117) U/L Albumin 2.5 L (3.4-5.0) g/dL <Gurinder Bazzi L - 03/02/18 17:34> Abnormal lab results 03/01/18 03/02/18 03/02/18 Range/Units 15:57 07:49 07:49 PT 13.1 H 13.3 H (9.8-11.6) sec Sodium 132 L (136-145) meq/L BUN 19 H (7-18) mg/dL Calcium 8.2 L (8.5-10.1) mg/dL Total Bilirubin 3.0 H (0.2-1.0) mg/dL Ammonia (11-32) mcmol/L Albumin 2.5 L (3.4-5.0) g/dL 03/02/18 Range/Units 07:49 PT (9.8-11.6) sec Sodium (136-145) meq/L BUN (7-18) mg/dL Calcium (8.5-10.1) mg/dL Total Bilirubin (0.2-1.0) mg/dL Ammonia 146 H (11-32) mcmol/L Albumin (3.4-5.0) g/dL BMP 03/02/18 07:49 Sodium 132 L Potassium 4.4 Chloride 103 Carbon Dioxide 23.2 BUN 19 H Creatinine 0.80 Calcium 8.2 L Liver Function 03/02/18 Range/Units 07:49 Total Bilirubin 3.0 H (0.2-1.0) mg/dL AST 32 (15-37) U/L ALT 21 (12-78) U/L Alkaline Phosphatase 64 (45-117) U/L Albumin 2.5 L (3.4-5.0) g/dL <Petrona Moody - 03/02/18 09:11> Physical Exam Vital signs: Vital Signs 03/01/18 20:00 03/01/18 21:40 03/02/18 00:00 Temperature 98.1 F 97.9 F Pulse Rate 63 60 Respiratory Rate 20 20 Blood Pressure 119/64 116/64 Pulse Oximetry 96 97 98 03/02/18 04:00 03/02/18 06:55 03/02/18 10:35 Temperature 98.1 F 98.2 F 98.1 F Pulse Rate 63 61 63 Respiratory Rate 20 18 18 Blood Pressure 126/68 112/55 L 106/60 Pulse Oximetry 97 98 97 03/02/18 10:40 03/02/18 15:20 Temperature 98.4 F Pulse Rate 65 Respiratory Rate 18 Blood Pressure 119/66 Pulse Oximetry 97 97 Intake & Output 03/01/18 03/02/18 03/02/18 18:59 06:59 18:59 Intake Total 50 / 50 50 / 50 Output Total 250 / 250 675 / 675 450 / 450 Balance -200 / -200 -625 / -625 -450 / -450 Weight 59.3 kg Intake: IV 50 / 50 50 / 50 Flexbumin 25% Inj 50 ML @ 60 50 / 50 50 / 50 mls/hr IV.SIG Q12H [facility] Rx#: [id number] Output: Urine 250 / 250 675 / 675 450 / 450 Other: # Voids 2 <Gurinder Bazzi - 03/02/18 17:34> Vital Signs 03/01/18 09:51 03/01/18 11:15 03/01/18 16:20 Temperature 97.8 F 98.5 F Pulse Rate 56 L 58 L Respiratory Rate 18 18 Blood Pressure 123/72 106/65 Pulse Oximetry 97 99 98 03/01/18 20:00 03/01/18 21:40 03/02/18 00:00 Temperature 98.1 F 97.9 F Pulse Rate 63 60 Respiratory Rate 20 20 Blood Pressure 119/64 116/64 Pulse Oximetry 96 97 98 03/02/18 04:00 03/02/18 06:55 Temperature 98.1 F 98.2 F Pulse Rate 63 61 Respiratory Rate 20 18 Blood Pressure 126/68 112/55 L Pulse Oximetry 97 98 Intake & Output 03/01/18 03/02/18 03/02/18 18:59 06:59 18:59 Intake Total 50 / 50 50 / 50 Output Total 250 / 250 675 / 675 Balance -200 / -200 -625 / -625 Weight 59.3 kg Intake: IV 50 / 50 50 / 50 Flexbumin 25% Inj 50 ML @ 60 50 / 50 50 / 50 mls/hr IV.SIG Q12H [facility] Rx#: [id number] Output: Urine 250 / 250 675 / 675 Other: # Voids 2 <Petrona Moody - 03/02/18 09:11> Narrative: GENERAL: Thin cachectic appearing white gentleman that is tired but arousable. Laying quietly in bed. SKIN: Warm and dry. No rash. CARDIOVASCULAR: Regular rate and rhythm without obvious murmurs, gallops, or rubs. RESPIRATORY: Breath sounds equal bilaterally. No accessory muscle use. CTAB. GASTROINTESTINAL: Abdomen distended with positive fluid wave. Bowel sounds present. No tenderness to palpation. MUSCULOSKELETAL: No cyanosis or edema. normal ROM NEURO/PSYCH: Alert and oriented x3. No focal deficits. <Petrona Moody - 03/02/18 09:11> Assessment and Plan - Assessment (1) Weakness Code(s): R53.1 - Weakness Status: Acute (2) Acute hepatic encephalopathy Code(s): K72.00 - Acute and subacute hepatic failure without coma Status: Acute (3) Cirrhosis of liver Code(s): K74.60 - Unspecified cirrhosis of liver Status: Acute (4) Ascites Code(s): R18.8 - Other ascites Status: Acute (5) Hepatitis C antibody test positive Code(s): R76.8 - Other specified abnormal immunological findings in serum Status: Acute (6) History of esophageal varices with bleeding Code(s): Z87.19 - Personal history of other diseases of the digestive system Status: Acute <Gurinder Bazzi - 03/02/18 17:34> (1) Weakness Code(s): R53.1 - Weakness Status: Acute Plan: Likely secondary to encephalopathy versus chronic liver failure -Con't regular diet (w/sodium restriction) plus Ensure supplementation -Dietary consulted -PT consulted, recommend rehab or home health care -Patient affirms decreased p.o. intake. Educated patient on the importance of eating and drinking Ensure supplementation. (2) Acute hepatic encephalopathy Code(s): K72.00 - Acute and subacute hepatic failure without coma Status: Acute Plan: Hepatic encephalopathy: -Ammonia increased from 75-146 today. Patient refusing lactulose and rifaximin. Educated patient on the importance of taking these medications to help with his acute encephalopathy. Patient voiced understanding. From physical examination, patient has full capacity. Patient understands his diagnosis and treatment plan moving forward. Patient understands the consequences of denying treatment. -Continue on Xifaxan 400 mg every 8 and lactulose 30 mL 4 times daily. -Continue spironolactone 400 mg daily. Continue Lasix 40 mg TID. -Patient has decided to move forward with hospice. Will consult hospice. Appreciate recommendations. -Psychiatry consulted to evaluate for capacity. Appreciate recommendations. (3) Cirrhosis of liver Code(s): K74.60 - Unspecified cirrhosis of liver Status: Acute Plan: Diagnosed with cirrhosis of the liver over 20 years ago. Received no medical treatment until recently. Also found to be hepatitis C positive. -PT/INR stable. -Child's Saba score of 11 class C indicating life expectancy of 1-3 years -Meld-sodium score of 16 indicating less than 2% 90-day mortality -SAAG from paracentisis on 02/18 1.9, indicated portal HTN -Endoscopy/colonoscopy on 02/20 significant for rectal varices as well as signs of portal hypertension gastropathy -AFP within normal limits at 7.8 Plan: -Outpatient f/u necessary, consider liver transplant (4) Ascites Code(s): R18.8 - Other ascites Status: Acute Plan: 2/2 to portal HTN. Status post paracentesis on 02/18. -Abdomen reaccumulating ascitic fluid, will likely need retap after 2 weeks or less, needs regular follow-up. Plan: -Continue nadolol 20 mg daily -Continue furosemide 40 mg 3 times daily -Continue Spironolactone 400 mg p.o. daily -Consider paracentesis if ascites rapidly worsens (5) Hepatitis C antibody test positive Code(s): R76.8 - Other specified abnormal immunological findings in serum Status: Acute Plan: Hepatitis C IgG antibody reactive -Hepatitis C RNA viral load 63,200 -Hepatitis C genotype 1B -Follow up with GI outpatient (6) History of esophageal varices with bleeding Code(s): Z87.19 - Personal history of other diseases of the digestive system Status: Acute Plan: Patient has history of esophageal varices with bleeding 20 years ago when initially diagnosed with cirrhosis. H&H stable. - Pursue further testing based on any changes on clinical exam Fluids: Not indicated at this time Electrolytes: Replete as needed Nutrition: Regular diet with sodium restriction 2 g daily as well as fluid restriction 1500 mL daily and Ensure supplement with every meal DVT prophylaxis: Enoxaparin 40 mg subcu <Petrona Moody - 03/02/18 15:10> - Attending Attestation Attending note: I evaluated the patient alongside the resident team. I agree with documentation above. Patient tells us in no uncertain terms that he prefers comfort care only, and would like to proceed with hospice care. We discussed options with him, including evaluation for liver transplant, which he declines. He also declines paracentesis. He wishes to undergo no more interventions or procedures and would like to just be comfortable. Eldest daughter at the bedside during this conversation and she agrees to proceed with hospice. Other family members were updated by telephone by myself and Dr. Carr. <Gurinder Bazzi - 03/02/18 17:34>
[2018-03-02] MEDS: Nadolol 20 MG Tablet PO SCH (10:03)
[2018-03-02] MEDS: Furosemide 40 MG Tablet PO SCH ×3 (10:03→17:24)
[2018-03-02] MEDS: Senna/Docusate Sodium 8.6/50 MG Tablet PO SCH (10:04)
[2018-03-02 10:40] VITALS: O2SAT 97
[2018-03-02 11:44] LABS: Baso # (Auto) 0.1 th/mm3 (0.0-0.2); Baso % (Auto) 1.2 % (0.0-2.0); Eos # (Auto) 0.2 th/mm3 (0.0-0.4); Eos % (Auto) 3.5 % (0.0-4.0); Hematocrit 37.8 % (39.0-51.0); Hemoglobin 13.3 gm/dL (13.0-17.0); Mean Corpuscular HGB Conc 35.2 % (32.0-36.0); Mean Corpuscular Hemoglobin 35.7 pg (27.0-34.0); Mean Corpuscular Volume 101.4 fL (80.0-100.0); Mean Platelet Volume 9.5 fL (7.0-11.0); Mono # (Auto) 1.1 th/mm3 (0.0-0.9); Mono % (Auto) 16.3 % (0.0-8.0); Neut # (Auto) 4.4 th/mm3 (1.8-7.7); Platelet Count 141 th/mm3 (150-450); Red Blood Count 3.72 mil/mm3 (4.50-5.90); Red Cell Distribution Width 15.4 % (11.6-17.2); White Blood Count 6.9 th/mm3 (4.0-11.0)
--- NOTE | 2018-03-02 14:56 | P.CONPSY ---
Provisional Diagnosis Admission Date: February 26, 2018 13:47 [place] I.: Delirium due to underlying medical condition History of Present Illness Service: Medic[facility] Primary Care Provider: PROVIDER NON STAFF History of Present Illness: The patient is a 72-year-old man, domiciled in [facility] with his , no previous psychiatric history, no previous suicidal attempts no previous psychiatric hospitalizations, with history of alcohol use disorder, in full sustained remission, medical history esophageal variceal bleeding and liver cirrhosis diagnosed 20 years ago and recently discharged who presented again 02/26 with intermittent confusion. Pt was admitted 02/18/18 to 02/23/17 for 1 - 2 month hx abd pain, and distention, SOB. He appeared jaundiced. He was found to have hepatitis C, cirrhosis, ascites. Initial labs this admission significant for: PLT 141, NH 83, tbil 2.7, albumin 2.0. EEG indicated encephalopathy. NH increased to 133 and then dropped with initiation of lactulose and rifaximin by GI. Patient has been seen by palliative care and deemed poor prognosis and qualified for hospice. He has been consulted to psychiatry to address his decision-making capacity. On my psychiatric evaluation today the patient is quite lethargic, distant, superficially cooperative. However, the patient is able to tell me he is a little better today. He tells me that he has been suffering of a lot of pain and difficulty sleeping at night. Patient is able to tell me that the reason he is here is because his liver failure. Patient tells me that he understand that his condition is quite irreversible. He tells me that he does not want to pursue aggressive treatment at this moment, but treatment for pain and to be in peace. The patient is fully oriented x3, there is no attention deficit he, there is no fluctuation of consciousness at this moment, patient is logical, coherent and relevant. He denies suicidal and homicidal ideation, he denies visual and auditory hallucinations PPHx: no previous psychiatric history, no previous suicidal attempts no previous psychiatric hospitalizations PMHx: medical history esophageal variceal bleeding and liver cirrhosis diagnosed 20 years ago Family Hx: No family psychiatric history Substance Hx: with history of alcohol use disorder, in full sustained remission Social Hx: Patient was born and raised in [facility], domiciled in [facility] with his PMF - History History Provided By: Patient, Family Member, Medical Record - Medical History Medical History: Medical History (Last Reviewed 03/02/18 @ 09:21 by Denia Pedroza) Advanced hepatic cirrhosis CHF (congestive heart failure) HTN (hypertension) - Family History Family History: Family History (Last Reviewed 03/02/18 @ 09:21 by Denia Pedroza) Other No pertinent family history - Tobacco History Second Hand Smoke Exposure: No Tobacco Use In Past 30 Days: No Smoking Status: Former smoker Tobacco Type: Cigarettes - Alcohol History How Often Do You Have a Drink Containing Alcohol: Never (heavy drinker 20 y ago) - Substance Use History Substance History: Active Abuse (occasionally smokes marijuana) - Substance Use Type Alcohol Status: Sustained Remission - Travel History Recent Travel in the [place] Within the Last 8 Weeks: No Recent Travel Out of the Country Within the Last 8 Weeks: No - Immunization History Tetanus Immunization: Unsure Medications and Allergies Active Medications: Active Medications Al Hydroxide/Mg Hydroxide (Milk Of Magnesia Liq) 30 ml PO Q12H PRN PRN Reason: Mild Constipation Bisacodyl (Dulcolax Supp) 10 mg RECTAL DAILY PRN PRN Reason: SEVERE CONSITIPATION Furosemide (Lasix) 40 mg PO TID [facility] Last Admin: 03/02/18 13:13 Dose: Not Given Lactulose (Lactulose Liq) 30 ml PO DAILY PRN PRN Reason: SEVERE CONSITIPATION Last Admin: 02/28/18 16:32 Dose: 30 ml Lactulose (Lactulose Liq) 30 ml PO QID [facility] Last Admin: 03/02/18 13:13 Dose: Not Given Nadolol (Corgard) 20 mg PO DAILY [facility] Last Admin: 03/02/18 10:03 Dose: Not Given Ondansetron HCl (Zofran Inj) 4 mg IV.PUSH Q6H PRN PRN Reason: NAUSEA OR VOMITING Last Admin: 03/01/18 12:33 Dose: 4 mg Rifaximin (Xifaxan) 400 mg PO Q8HR [facility] Last Admin: 03/02/18 13:13 Dose: Not Given Senna/Docusate Sodium (Jessica-Colace) 1 tab PO BID [facility] Last Admin: 03/02/18 10:04 Dose: Not Given Sennosides (Senokot) 17.2 mg PO Q12H PRN PRN Reason: Moderate Constipation Sodium Chloride (Ns Flush) 2 ml IV.FLUSH BID [facility] Last Admin: 03/02/18 10:03 Dose: Not Given Sodium Chloride (Ns Flush) 2 ml IV.FLUSH PRN PRN PRN Reason: FLUSH AFTER USING IV ACCESS Spironolactone (Aldactone) 400 mg PO DAILY [facility] Last Admin: 03/02/18 10:03 Dose: Not Given Allergies Allergy/AdvReac Type Severity Reaction Status Date / Time No Known Allergies Allergy Verified 02/26/18 11:01 Exam Vital signs: Vital Signs 03/01/18 16:20 03/01/18 20:00 03/01/18 21:40 Temperature 98.5 F 98.1 F Pulse Rate 58 L 63 Respiratory Rate 18 20 Blood Pressure 106/65 119/64 Pulse Oximetry 98 96 97 03/02/18 00:00 03/02/18 04:00 03/02/18 06:55 Temperature 97.9 F 98.1 F 98.2 F Pulse Rate 60 63 61 Respiratory Rate 20 20 18 Blood Pressure 116/64 126/68 112/55 L Pulse Oximetry 98 97 98 03/02/18 10:35 03/02/18 10:40 Temperature 98.1 F Pulse Rate 63 Respiratory Rate 18 Blood Pressure 106/60 Pulse Oximetry 97 97 Intake & Output 03/01/18 03/02/18 03/02/18 18:59 06:59 18:59 Intake Total 50 / 50 50 / 50 Output Total 250 / 250 675 / 675 150 / 150 Balance -200 / -200 -625 / -625 -150 / -150 Weight 59.3 kg Intake: IV 50 / 50 50 / 50 Flexbumin 25% Inj 50 ML @ 60 50 / 50 50 / 50 mls/hr IV.SIG Q12H [facility] Rx#: [id number] Output: Urine 250 / 250 675 / 675 150 / 150 Other: # Voids 2 Mental Status Examination Appearance: Appropriate Consciousness: Lethargic Orientation: x4 Motor Activity: Normal gait Speech: Unremarkable Language: Adequate Fund of Knowledge: Adequate Attention and Concentration: Adequate Memory: Unremarkable Mood: Appropriate Affect: Appropriate Thought Process & Associations: Intact Thought Content: Appropriate Hallucination Type: None Delusion Type: None Suicidal Ideation: No Suicidal Plan: No Suicidal Intention: No Homicidal Ideation: No Homicidal Plan: No Homicidal Intention: No Insight: Adequate Judgment: Adequate Assessment and Plan - Assessment (1) Delirium due to another medical condition Code(s): F05 - Delirium due to known physiological condition Status: Acute (2) Cirrhosis of liver Code(s): K74.60 - Unspecified cirrhosis of liver Status: Acute - Plan Plan: On psychiatric evaluation today the patient presents lethargic, superficially cooperative, but able to provide meaningful information for the psychiatric assessment. The patient is able to elaborate about the recent of his hospitalization, the nature of his medical illness and prognosis. The patient is fully oriented x3, is logical, he is coherent, relevant. He does report to be on pain, distress, with difficulty sleeping at night. He denies suicidal and homicidal ideation, he denies visual and auditory hallucinations. The patient tells me that he does not wish to pursue aggressive treatment of his medical condition, he agrees with just comfort care and be discharged to hospice. Patient definitely has decision-making capacity at this moment to participate in his treatment plan and medical decisions. A low dose of Seroquel , 25 mg at bedtime can be given to help the patient to sleep at night. No admission is indicated. Justification for Continued Inpatient Stay: No admission is indicated
--- NOTE | 2018-03-02 15:09 | P.PNADD ---
Addendum to Inpatient Note Additional information: Addendum: Returned to patient's room today at 12:30 PM with attending physician and senior resident Dr. Ortega. Spoke extensively with patient about his current disease process and prognosis. Patient understands he is in the hospital for liver cirrhosis. Treatment options were explained extensively to patient at this time which include aggressive management or comfort care. Patient understood the reality of both options and chose to go with comfort care moving forward. He denied choosing an option which involved transferring to tertiary care and being evaluated for liver transplant. Patient verbalized wanting to go to hospice for comfort care. At this time patient has full capacity. He is alert and oriented to person, place, time. This patient is aware of his prognosis and decisions moving forward. He understands his disease prognosis and outcomes of his decisions and has decided to opt for hospice moving forward. Patient oldest daughter at bedside and agreeable with the plan moving forward. Attending note: I was present for this entire interaction with the patient. Patient states in no uncertain terms that he wants comfort care and prefers hospice. He declines any more aggressive measures. We will respect his wishes and move forward with hospice. Family will be appropriately updated. Eldest daughter was at the bedside.
[2018-03-02 15:52] VITALS: BP 119/66; PULSE 65; TEMP 98.4
--- NOTE | 2018-03-02 21:39 | P.DS ---
Date of admission: 02/26/18 13:47 Primary care physician: PROVIDER NON STAFF Brief History from admission: This patient is a 72-year-old male with a history of liver cirrhosis diagnosed 20 years ago, recently discharged from [facility] after being treated for acute liver failure complicated by ascites who presents the ED with a 3-day history of waxing waning confusion. Per patient was fine on day of discharge and went on about his daily activities without issue. Patient continued to feel fine on Thursday and Thursday as well but slept most of the day with the exception of going to the bathroom. On however, patient started to be confused, felt panicked and scared. reports that he had difficulty using remote control due to his confusion as well as called into bathroom due to confusion as he did not know which hand to use to white himself. reports that on Thursday at 4AM he was sleeping on the couch and got up to use bathroom but started walking to kitchen, redirected him but he walked into another room and took several other redirections to finally get him into the right room. He reports that his confusion happens about 2-3 times a day and lasts about 5 minutes, and resolves with significant redirection and reorientation. During this time reports that he is eating well but has been constipated. Patient reports his last bowel movement was yesterday but admits that he may be confused. 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 Patient smokes marijuana occasionally but does not smoke or use tobacco. He has 4 kids in total one that is an unfortunate suicide after being addicted to painkillers. Allergies: None DS: Diagnosis - Discharge Diagnosis (1) Weakness Status: Acute (2) Acute hepatic encephalopathy Status: Acute (3) Cirrhosis of liver Status: Acute (4) Ascites Status: Acute (5) Hepatitis C antibody test positive Status: Acute (6) History of esophageal varices with bleeding Status: Acute DS: Summary Hospital Course: Patient presented with altered mental status for 3 days. Was found to have high ammonia levels due to liver cirrhosis and was started on lactulose and rifaximin. GI consulted and recommended continuing Xifaxan, lactulose, diuretics, nadolol. Determine poor prognosis for patient. After couple of days on the medication, patient became more alert and oriented to person, place and time. Aware of prognosis, patient decided to request hospice care for further treatment of medical condition. Multiple discussions with family, palliative care, and hospice were done and patient was discharged to Hospice for comfort care. - Time Spent with Patient Total time spent providing and/or coordinating discharge services: Less than 30 minutes - Quality: VTE Deep Vein Thrombosis/Pulmonary Embolism Present on Admission: No Exam Vital signs: Vital Signs 03/01/18 21:40 03/02/18 00:00 03/02/18 04:00 Temperature 97.9 F 98.1 F Pulse Rate 60 63 Respiratory Rate 20 20 Blood Pressure 116/64 126/68 Pulse Oximetry 97 98 97 03/02/18 06:55 03/02/18 10:35 03/02/18 10:40 Temperature 98.2 F 98.1 F Pulse Rate 61 63 Respiratory Rate 18 18 Blood Pressure 112/55 L 106/60 Pulse Oximetry 98 97 97 03/02/18 15:20 Temperature 98.4 F Pulse Rate 65 Respiratory Rate 18 Blood Pressure 119/66 Pulse Oximetry 97 Intake & Output 03/02/18 03/02/18 03/03/18 06:59 18:59 06:59 Intake Total 50 / 50 Output Total 675 / 675 450 / 450 Balance -625 / -625 -450 / -450 Weight 59.3 kg Intake: IV 50 / 50 Flexbumin 25% Inj 50 ML @ 60 50 / 50 mls/hr IV.SIG Q12H [facility] Rx#: [id number] Output: Urine 675 / 675 450 / 450 Narrative: GENERAL: Thin cachectic appearing white gentleman that is tired but arousable. Laying quietly in bed. SKIN: Warm and dry. No rash. CARDIOVASCULAR: Regular rate and rhythm without obvious murmurs, gallops, or rubs. RESPIRATORY: Breath sounds equal bilaterally. No accessory muscle use. CTAB. GASTROINTESTINAL: Abdomen distended with positive fluid wave. Bowel sounds present. No tenderness to palpation. MUSCULOSKELETAL: No cyanosis or edema. normal ROM NEURO/PSYCH: Alert and oriented x3. No focal deficits. Results Procedures completed during hospitalization: none Labs on day of discharge: Labs from last 24 hours 03/02/18 03/02/18 03/02/18 11:10 07:49 07:49 WBC 6.9 RBC 3.72 L Hgb 13.3 Hct 37.8 L MCV 101.4 H MCH 35.7 H MCHC 35.2 RDW 15.4 Plt Count 141 L MPV 9.5 Neut % (Auto) 64.0 Lymph % (Auto) 15.0 [place] % (Auto) 16.3 H Eos % (Auto) 3.5 Baso % (Auto) 1.2 Neut # (Auto) 4.4 Lymph # (Auto) 1.0 [place] # (Auto) 1.1 H Eos # (Auto) 0.2 Baso # (Auto) 0.1 WBC Differential . Differential Comment Auto diff final PT INR Sodium 132 L Potassium 4.4 Chloride 103 Carbon Dioxide 23.2 Anion Gap 6 BUN 19 H Creatinine 0.80 Estimated GFR Greater than 89 Random Glucose 75 Calcium 8.2 L Total Bilirubin 3.0 H AST 32 ALT 21 Alkaline Phosphatase 64 Ammonia 146 H Total Protein 6.4 Albumin 2.5 L 03/02/18 07:49 WBC RBC Hgb Hct MCV MCH MCHC RDW Plt Count MPV Neut % (Auto) Lymph % (Auto) [place] % (Auto) Eos % (Auto) Baso % (Auto) Neut # (Auto) Lymph # (Auto) [place] # (Auto) Eos # (Auto) Baso # (Auto) WBC Differential Differential Comment PT 13.3 H INR 1.3 Sodium Potassium Chloride Carbon Dioxide Anion Gap BUN Creatinine Estimated GFR Random Glucose Calcium Total Bilirubin AST ALT Alkaline Phosphatase Ammonia Total Protein Albumin Preliminary micro results at discharge 02/26/18 11:25 Aerobic Blood Culture - Preliminary Blood - Line No growth in 4 days Anaerobic Blood Culture - Preliminary No growth in 4 days 02/26/18 11:30 Aerobic Blood Culture - Preliminary Blood - Line No growth in 4 days Anaerobic Blood Culture - Preliminary No growth in 4 days - Impressions ITS Impressions Chest X-Ray 02/26/18 11:24 CONCLUSION: Negative for acute process Head CT 02/26/18 11:24 CONCLUSION: 1. Senescent changes without acute intracranial abnormality. . Liver Ultrasound 02/28/18 00:00 CONCLUSION: 1. Cirrhosis. 2. Moderate amount of ascites. 3. Diffuse nonspecific gallbladder wall thickening. Gallstones are demonstrated on recent CT. Discharge Plan - Discharge Disposition Patient Disposition: 51 Hospice/Med Facility - Discharge Order Discharge Orders: Discharge Order (Routine); Ordered 03/02/18 Ordered By: Petrona Melvin ED Use Only Admit Order (Routine); Ordered 02/26/18 Ordered By: Morena Monae - Physicians Team Primary Care Provider: NON STAFF,PROVIDER Attending Provider: Gurinder Bazzi Other Providers: Vannessa Barron MD ; Ranjit Forbes MD ; Hung Sheth MD
== END 2018-03-02 18:06 | disposition hospice, inpatient (51) | DRG 442 ==
LOC: NEDA 10:53 → NEPE 10:53 → OBSVTOIN 13:47 → N05 17:35
PROVIDERS: ADMIT Family Medicine; ATTEND Family Medicine
CPT/HCPCS: 70450; 71010; 71045; 76705; 80048; 80053; 80307; 81001; 82105; 82140; 82378; 82803; 82805; 83605; 83735; 84484; 85025; 85610; 86301; 87040; 93005; 95819; 97162; J2405; J7030; P9047